=== PATIENT | female | born 1950 | race African-American/Black ===

== ENCOUNTER 2016-02-20 22:11 | Inpatient (IN) | payer OTHER ==
[~2016-02-20] VITALS: Ht 165.1 cm; Wt 71.9 kg
--- NOTE | ~2016-02-20 | EKG ---
[address] [address] ELECTROCARDIOGRAM REPORT Name: RIZWANAMANOJ AGUILAR Room #: 211-P ADM IN M.R.#: [id number] Admission: 02/21/16 Attend Phys: Jony Guerra MD Discharge: Date of : 46 Report #: [id number] THIS REPORT FOR: //name// [facility] ED Test Date: 2016-02-20 Test Time: 22:17:28 Pat Name: MANOJ WAGONER Department: Room: 211 Gender: F Leadite Worker: ASTRID : 1950 Requested By: Abigail Montana Order Number: [id number] MD: Dayday Tobar Measurements Intervals [place] Rate: 83 P: 26 UT: 217 QRS: -35 QRSD: 83 T: 28 QT: 459 QTc: 540 Interpretive Statements Sinus rhythm Borderline prolonged [place] interval Left axis deviation Electronically Signed On 02-21-2016 8:22:48 FINISHING MACHINE TENDER by Dayday Tobar [email or web address] <ELECTRONICALLY SIGNED> By: Dayday Tobar MD 02/21/16 0822 2217 16 Dayday Tobar MD /NICKY
--- NOTE | ~2016-02-20 | EKG ---
[address] [address] ELECTROCARDIOGRAM REPORT Name: RIZWANAMANOJ Room #: 211-P ADM IN M.R.#: [id number] Admission: 02/21/16 Attend Phys: Jony Guerra MD Discharge: Date of : 46 Report #: [id number] THIS REPORT FOR: //name// [facility] ED Test Date: 2016-02-21 Test Time: 01:26:51 Pat Name: MANOJ WAGONER Department: Room: 211 Gender: F Station Engineer: Sandeep STONE RN : 1950 Requested By: Abigail Montana Order Number: [id number] MD: Dayday Tobar Measurements Intervals [place] Rate: 91 P: 13 SC: 219 QRS: -79 QRSD: 87 T: 20 QT: 381 QTc: 469 Interpretive Statements Sinus rhythm Prolonged SC interval Electronically Signed On 02-21-2016 8:23:08 CAD TECHNICIAN by Dayday Tobar [email or web address] <ELECTRONICALLY SIGNED> By: Dayday Tobar MD 02/21/16 0823 0126 0126 MD ENOC Jack
[~2016-02-20 22:11] MED LIST: ACETAMINOPHEN325 M1 PO; B12INJ; BENICAR PO; BENICAR40 MG PO; CATAPRES-TTS 31 EACH TD; CATAPRESS3; CATAPRESS3 TP; CLEOCIN HCL150 MG PO; CLEOCIN HCL300 MG PO; CLONIDINE0.1 PO; COLACE100 MG PO; DOXYCYCLINE 10100 M1; ENDOCET 5-3251 EACH PO; GLUCOPHAGE500 MG PO; HYDROCODON-ACE1 EAC7 PO; HYDROCODONE-AP1 EAC6 PO; K-DUR 20 MEQ T20 MEQ PO; KLOR-CON 1010 MEQ PO; LASIX 20 MG TAB20 MG PO; LISINOPRIL; LOPRESSOR; LOPRESSOR100 MG PO; LOPRESSOR25 PO; LOPRESSOR50 PO; LYRICA 75 MG CA75 MG PO; MACROBID 100 M100 MG PO; MEDROL DOSPAK21 TAB PO; METFORMIN 500500 MG PO; METOPROLOL 100100 M1 PO; NAPROSYN500 MG PO; NEURONTIN 300300 M1 PO; NORCO 5-325 TA1 EACH PO; NORTRIPTYLINE H25 M3 PO; ONDANSETRON HCL4 M2 PO; PEPCID20 MG PO; PERCOCET 5-3251 EACH PO; PROBIOTIC1 EAC1 PO; ROXICODONE5 M2 PO; VITAMIN D1000 UNI1
[2016-02-20 22:20] VITALS: BP 183/111
[2016-02-20 23:31] LABS: HEMATOCRIT 33.9 % (37.0-47.0); HEMOGLOBIN 11.1 gm/dL (12.0-15.0); MCH 28.3 pg (26.0-34.0); MCHC 32.8 % (28.0-37.0); MCV 86.4 fL (80.0-100.0); PLATELET COUNT 311 thou/uL (150-400); RBC 3.92 mil/uL (4.20-5.00); RDW 18.6 % (10.5-14.5); WBC 5.2 thou/uL (4.0-11.0)
[2016-02-20 23:37] LABS: ANION GAP 10 mmol/L (7-16); BUN 6 mg/dL (7-18); CHLORIDE 103 mmol/L (98-107); CO2 28 mmol/L (21-32); CREATININE 0.7 mg/dL (0.6-1.3); GLUCOSE 108 mg/dL (70-99); SODIUM 141 mmol/L (136-145)
[2016-02-20 23:46] LABS: TROPONIN-I < 0.04 ng/mL (<0.04-0.07)
[2016-02-20 23:51] LABS: MANUAL DIFF YES
[2016-02-20] MEDS ORDERED: NEURONTIN 300300 M1 PO (23:53)
[2016-02-20] MEDS ORDERED: PEPCID20 MG PO (23:53)
[2016-02-20] MEDS ORDERED: B12INJ PO (23:53)
[2016-02-20] MEDS ORDERED: COZAAR 25 MG TA25 M1 PO (23:56)
[2016-02-21] VITALS (9 sets, daily range): BP systolic 118–174; BP diastolic 76–102
[2016-02-21 00:16] LABS: ABSOLUTE NEUTROPHILS 2.7 thou/uL (1.4-8.2); TOTAL CELL COUNT 100
[2016-02-21 00:17] LABS: ANISOCYTOSIS 1+
[2016-02-21 08:39] LABS: MAGNESIUM 1.5 mg/dL (1.8-2.4); TROPONIN-I < 0.04 ng/mL (<0.04-0.07)
[2016-02-22 00:01] VITALS: BP 150/101
[2016-02-22 03:56] LABS: HEMATOCRIT 32.5 % (37.0-47.0); HEMOGLOBIN 10.4 gm/dL (12.0-15.0); MCH 28.4 pg (26.0-34.0); MCV 88.8 fL (80.0-100.0); RBC 3.66 mil/uL (4.20-5.00); RDW 18.9 % (10.5-14.5); WBC 6.5 thou/uL (4.0-11.0)
[2016-02-22 04:00] LABS: CALCIUM 8.2 mg/dL (8.5-10.1); CREATININE 0.7 mg/dL (0.6-1.3); POTASSIUM 3.5 mmol/L (3.5-5.1)
[2016-02-22 04:27] VITALS: BP 151/100
[2016-02-22 07:40] VITALS: BP 131/97
[2016-02-22 12:02] VITALS: BP 139/93
[2016-02-22] MEDS ORDERED: COZAAR 50 MG TA50 M1 PO (14:44)
[2016-02-22] MEDS ORDERED: HYDROCODONE-AP1 EAC6 PO (14:44)
[2016-02-22] MEDS ORDERED: LEVAQUIN 750 M750 MG PO (14:44)
[2016-02-22 15:11] VITALS: BP 139/93
== END 2016-02-22 17:47 | disposition home or self-care (01) | DRG 304 ==
LOC: ER 22:11 → EROBS 02-21 02:15 → 2N 02-21 02:15
PROVIDERS: Emergency Medicine; Nurse Practitioner
DX: I16.0 Hypertensive urgency (principal); J18.9 Pneumonia, unspecified organism; D68.9 Coagulation defect, unspecified; I71.4 Abdominal aortic aneurysm, without rupture; I10 Essential (primary) hypertension; E11.9 Type 2 diabetes mellitus without complications; I25.10 Atherosclerotic heart disease of native coronary artery without angina pectoris; D69.6 Thrombocytopenia, unspecified; Z91.19 Patient's noncompliance with other medical treatment and regimen; Z88.0 Allergy status to penicillin; Z88.2 Allergy status to sulfonamides; Z91.040 Latex allergy status; Z91.041 Radiographic dye allergy status; Z82.49 Family history of ischemic heart disease and other diseases of the circulatory system; Z83.3 Family history of diabetes mellitus; Z87.891 Personal history of nicotine dependence; Z86.718 Personal history of other venous thrombosis and embolism; Z86.711 Personal history of pulmonary embolism; Z87.440 Personal history of urinary (tract) infections
CPT/HCPCS: 10081

== ENCOUNTER 2016-10-22 22:47 | Emergency (ER) | payer OTHER ==
[~2016-10-22] VITALS: Ht 165.1 cm; Wt 78.5 kg
--- NOTE | ~2016-10-22 | EKG ---
[place] [address] [facility] [employer] [address] ELECTROCARDIOGRAM REPORT Name: MANOJ WAGONER Room #: [facility]#: [id number] Admission: 10/22/16 Attend Phys: Discharge: 10/23/16 Date of : 46 Report #: [id number] THIS REPORT FOR: //name// [facility] ED Test Date: 2016-10-22 Test Time: 23:13:11 Pat Name: MANOJ WAGONER Department: Room: Gender: F Wool Grader: [facility] : 1950 Requested By: Anamika Rosario Order Number: [id number] MD: Chris Perkins Measurements Intervals [place] Rate: 80 P: 35 NJ: 229 QRS: -41 QRSD: 96 T: 3 QT: 400 QTc: 462 Interpretive Statements Sinus rhythm Left anterior hemiblock Nonspecific T wave abnormality Compared to ECG 02/21/2016 01:26:51 No significant change was found Electronically Signed On 10-23-2016 8:31:16 CDT by Chris Perkins [email or web address] <ELECTRONICALLY SIGNED> By: Chris Perkins MD, [facility] 10/23/16 0831 12 12 Chris Perkins MD, [facility] /EPI
[~2016-10-22 22:47] MED LIST changes: +B12INJ PO; +COZAAR 25 MG TA25 M1 PO; +COZAAR 50 MG TA50 M1 PO; +LEVAQUIN 750 M750 MG PO
[2016-10-22 23:23] LABS: HEMATOCRIT 40.4 % (37.0-47.0); HEMOGLOBIN 13.5 gm/dL (12.0-15.0); MCHC 33.4 g/dL (28.0-37.0); MCV 89.7 fL (80.0-100.0); PLATELET COUNT 255 thou/uL (150-400); RBC 4.51 mil/uL (4.20-5.00); RDW 15.4 % (10.5-14.5); WBC 5.8 thou/uL (4.0-11.0)
[2016-10-22 23:25] LABS: MANUAL DIFF YES
[2016-10-22 23:38] LABS: ANION GAP 10 mmol/L (7-16); BUN 16 mg/dL (7-18); CALCIUM 9.2 mg/dL (8.5-10.1); CHLORIDE 105 mmol/L (98-107); CO2 25 mmol/L (21-32); GLUCOSE 123 mg/dL (74-106); POTASSIUM 3.5 mmol/L (3.5-5.1); SODIUM 140 mmol/L (136-145); TROPONIN-I < 0.04 ng/mL (<0.04-0.07)
[2016-10-22 23:44] LABS: ABSOLUTE NEUTROPHILS 1.5 thou/uL (1.4-8.2); ATYPICAL LYMPHS 8 %; TOTAL CELL COUNT 100
[2016-10-23] MEDS ORDERED: CLONIDINE0.1 PO (00:19)
[2016-10-23] MEDS ORDERED: HYDROCODON-ACE1 EAC7 PO (00:19)
== END 2016-10-23 00:42 | disposition home or self-care (01) ==
LOC: ER 22:47
PROVIDERS: Emergency Medicine
DX: R07.89 Other chest pain (principal); I10 Essential (primary) hypertension; Z86.69 Personal history of other diseases of the nervous system and sense organs; Z86.718 Personal history of other venous thrombosis and embolism; Z86.79 Personal history of other diseases of the circulatory system; Z88.0 Allergy status to penicillin; Z88.2 Allergy status to sulfonamides; Z91.040 Latex allergy status; Z91.041 Radiographic dye allergy status

== ENCOUNTER → 2016-10-29 | Outpatient (CLI) | payer OTHER | LOC: RAD 09:39 | DX: N64.4 Mastodynia (principal) ==

== ENCOUNTER 2016-12-01 00:39 | Emergency (ER) | payer OTHER ==
[~2016-12-01] VITALS: Ht 165.1 cm; Wt 78.9 kg
--- NOTE | ~2016-12-01 | EKG ---
[address] [place] [address] ELECTROCARDIOGRAM REPORT Name: RIZWANAMANOJ M [facility] [id number] Admission: 12/01/16 Attend Phys: Discharge: 12/01/16 Date of : 46 Report #: [id number] THIS REPORT FOR: //name// [facility] ED Test Date: 2016-12-01 Test Time: 02:07:39 Pat Name: MANOJ WAGONER Department: Room: Gender: F Transplant Nurse: RAFAEL : 1950 Requested By: Anamika Rosario Order Number: [id number] MD: Dayday Tobar Measurements Intervals [place] Rate: 70 P: 37 WI: 244 QRS: -41 QRSD: 94 T: 0 QT: 421 QTc: 455 Interpretive Statements Sinus rhythm Prolonged [place] interval Right ventricular hypertrophy Electronically Signed On 12-01-2016 8:49:19 CDT by Dayday Tobar [email or web address] <ELECTRONICALLY SIGNED> By: Dayday Tobar MD 12/01/16 0849 0207 0207 Dayday Tobar MD /NICKY
[2016-12-01] MEDS ORDERED: ASPIR 8181 M1 PO (00:47)
[2016-12-01] MEDS ORDERED: LIPITOR10 MG PO (00:48)
[2016-12-01 02:11] LABS: ABSOLUTE NEUTROPHILS 2.3 thou/uL (1.4-8.2); BASOPHILS 1.1 % (0.0-2.0); EOSINOPHILS 4.6 % (0.0-3.0); HEMATOCRIT 39.7 % (37.0-47.0); LYMPHOCYTES 47.2 % (24.0-44.0); MCH 29.9 pg (26.0-34.0); MCHC 32.9 g/dL (28.0-37.0); MONOCYTES 8.7 % (1.0-8.0); PLATELET COUNT 292 thou/uL (150-400); POLYS 38.4 % (36.0-66.0); RBC 4.36 mil/uL (4.20-5.00); WBC 5.9 thou/uL (4.0-11.0)
[2016-12-01 02:12] LABS: MANUAL DIFF NO
[2016-12-01 02:13] LABS: ANION GAP 7 mmol/L (7-16); BUN 16 mg/dL (7-18); CHLORIDE 104 mmol/L (98-107); CO2 24 mmol/L (21-32); CREATININE 0.8 mg/dL (0.6-1.0); GLUCOSE 126 mg/dL (74-106); POTASSIUM 4.5 mmol/L (3.5-5.1); SODIUM 135 mmol/L (136-145)
[2016-12-01 02:22] LABS: TROPONIN-I < 0.04 ng/mL (<0.04-0.07)
[2016-12-01] MEDS ORDERED: LOPRESSOR50 PO (04:53)
[2016-12-01] MEDS ORDERED: CLONIDINE0.1 PO (04:53)
== END 2016-12-01 05:13 | disposition home or self-care (01) ==
LOC: ER 00:39
PROVIDERS: Emergency Medicine
DX: R07.89 Other chest pain (principal); I10 Essential (primary) hypertension; Z86.69 Personal history of other diseases of the nervous system and sense organs; Z86.718 Personal history of other venous thrombosis and embolism; Z88.2 Allergy status to sulfonamides; Z88.0 Allergy status to penicillin; Z91.041 Radiographic dye allergy status; Z91.040 Latex allergy status

== ENCOUNTER 2017-04-12 22:52 | Inpatient (IN) | payer OTHER ==
[~2017-04-12] VITALS: Ht 165.1 cm; Wt 77.2 kg
--- NOTE | ~2017-04-12 | HC ---
[facility] [place] [address] [place] [address] CONSULTATION Name: MANOJ WAGONER Room #: 208-P [facility] IN ..#: [id number] Admission: 04/13/17 Attend Phys: Honorio Jarrett MD Discharge: 04/18/17 Date of : 46 Report #: [id number] THIS REPORT FOR: //name// CC: Honorio Gibson DATE OF SERVICE: 04/14/2017 REASON FOR CONSULTATION: Chest pain. HISTORY OF PRESENT ILLNESS: The patient is a 66-year-old female who presents with complaints of chest pain. She has a history of a type B aortic dissection, underwent successful stent graft in October [address] Mckay and Dr. Segura. Also, has a history of cerebral aneurysm, poorly controlled hypertension, diabetes, DVT and IVC filter in December 2015. Last echo was in November 2015 showing an EF of 50-55%. When she was admitted with dissection, she was followed by Dr. Perkins. She presents with new onset chest pain. She reports feels like a pressure, was 5/10 in intensity, radiated to the left arm, was associated with some shortness of breath. On admission, her blood pressure was elevated at 190/130. REVIEW OF SYSTEMS: A 12-point review of systems was performed and was negative other than what I mentioned above. PAST MEDICAL HISTORY: As mentioned above. SOCIAL HISTORY: Does not smoke. FAMILY HISTORY: Noncontributory. ALLERGIES: INCLUDE IODINE, LASIX, PENICILLIN AND SULFA. HOME MEDICATIONS: Include vitamins, aspirin, atorvastatin, multivitamin, gabapentin, losartan 50, metoprolol 50 b.i.d., clonidine 0.1 twice a day. PHYSICAL EXAMINATION: VITAL SIGNS: Temperature is 36.6, pulse 69, respirations 13, blood pressures now 137/79, sats are 93-95%. GENERAL: She is in no acute distress. HEENT: Oropharynx clear. NECK: Supple, with no thyromegaly. HEART: Regular rate and rhythm with normal S1, S2. No S3, S4. No elevated JVD. LUNGS: Clear to auscultation bilaterally. ABDOMEN: Soft, nontender, nondistended with no hepatosplenomegaly. [facility] [address] [place] [address] CONSULTATION Name: MANOJ WAGONER Room #: 208-[facility] IN M.R.#: [id number] Admission: 04/13/17 Attend Phys: Honorio Jarrett MD Discharge: 04/18/17 Date of : 46 Report #: [id number] EXTREMITIES: There is no clubbing, cyanosis or edema. Chest x-ray shows normal lung epps. There is evidence of a stent graft in the descending aorta. The CT shows that the upper abdominal aortic aneurysm is similar to 2017. The proximal abdominal aorta and distal thoracic aortic aneurysm is increased since 2016. This was reviewed by Dr. Gibson. LABORATORY DATA: White count 5.5, hemoglobin 12.6, platelets 215. Chemistries: Sodium 139, potassium 3.9, BUN 21, creatinine 1.3. Troponin x 2 is negative. EKG shows no evidence of ischemia. ASSESSMENT: In summary, the patient is a 66-year-old female with a history of aortic aneurysm, status post stent graft presenting with chest pain in the setting of poorly controlled blood pressure. Troponin is normal and her EKG shows no evidence of ischemia. I would recommend that we obtain an echocardiogram tomorrow and that we continue to optimize her blood pressure control. <ELECTRONICALLY SIGNED> By: Dayday Tobar MD 04/26/17 1749 1131 1809 Dayday Tobar MD /nt
--- NOTE | ~2017-04-12 | EKG ---
[address] [place] [address] ELECTROCARDIOGRAM REPORT Name: MANOJ WAGONER Room #: 241- ADM IN M.R.#: [id number] Admission: 04/13/17 Attend Phys: Honorio Jarrett MD Discharge: Date of : 46 Report #: [id number] THIS REPORT FOR: //name// [facility] Test Date: 2017-04-15 Test Time: 10:19:23 Pat Name: MANOJ WAGONER Department: Room: 241 P Gender: F Bartender Manager: KIMBERLY : 1950 Requested By: Jose Amado Order Number: [id number] MD: Chris Perkins Measurements Intervals [place] Rate: 68 P: -18 LA: 228 QRS: -37 QRSD: 99 T: QT: 402 QTc: 428 Interpretive Statements Sinus rhythm Prolonged [place] interval Left axis deviation Early R-wave progression T abnrm, anterolateral leads Compared to ECG 04/12/2017 22:58:33 No significant change was found Electronically Signed On 04-16-2017 7:47:18 TRAVELERS' AID WORKER by Chris Perkins [email or web address] <ELECTRONICALLY SIGNED> By: Chris Perkins MD, [facility] 04/16/17 0747 1019 1019 Chris Perkins MD, [facility] /EPI
--- NOTE | ~2017-04-12 | EKG ---
[address] [address] ELECTROCARDIOGRAM REPORT Name: MANOJ WAGONER Room #: 251-P [facility] IN M.R.#: [id number] Admission: 04/13/17 Attend Phys: Honorio Jarrett MD Discharge: Date of : 46 Report #: [id number] THIS REPORT FOR: //name// [facility] ED Test Date: 2017-04-12 Test Time: 22:58:33 Pat Name: MANOJ WAGONER Department: Room: 251 Gender: F Nurse General Duty: MABEL : 1950 Requested By: Jeremiah Hunter Order Number: [id number] MD: Dayday Tobar Measurements Intervals [place] Rate: 69 P: 43 OR: 248 QRS: -35 QRSD: 83 T: 45 QT: 592 QTc: 635 Interpretive Statements Sinus rhythm Prolonged [place] interval Abnormal R-wave progression, early transition Inferior infarct, old Compared to ECG 12/01/2016 02:07:39 Myocardial infarct finding now present Right ventricular hypertrophy no longer present Electronically Signed On 04-13-2017 13:27:25 CUSHION COVER INSPECTOR by Dayday Tobar [email or web address] <ELECTRONICALLY SIGNED> By: Dayday Tobar MD 04/13/17 1327 2258 2258 Dayday Tobar MD /EPI
[~2017-04-12 22:52] MED LIST changes: +ASPIR 8181 M1 PO; +LIPITOR10 MG PO
[2017-04-12 22:53] VITALS: BP 153/77
[2017-04-13] VITALS (71 sets, daily range): BP systolic 96–170; BP diastolic 56–105
[2017-04-13 00:14] LABS: ABSOLUTE NEUTROPHILS 1.7 thou/uL (1.4-8.2); BASOPHILS 1.5 % (0.0-2.0); EOSINOPHILS 5.1 % (0.0-3.0); HEMATOCRIT 37.2 % (37.0-47.0); HEMOGLOBIN 12.6 gm/dL (12.0-15.0); LYMPHOCYTES 51.3 % (24.0-44.0); MCH 30.6 pg (26.0-34.0); MCHC 33.9 g/dL (28.0-37.0); MCV 90.4 fL (80.0-100.0); MONOCYTES 11.7 % (1.0-8.0); PLATELET COUNT 215 thou/uL (150-400); POLYS 30.4 % (36.0-66.0); RBC 4.11 mil/uL (4.20-5.00); RDW 15.3 % (10.5-14.5); WBC 5.5 thou/uL (4.0-11.0)
[2017-04-13] MEDS ORDERED: CENTRUM SILVER1 EAC2 PO (00:22)
[2017-04-13 00:25] LABS: ANION GAP 7 mmol/L (7-16); BUN 14 mg/dL (7-18); CALCIUM 8.5 mg/dL (8.5-10.1); CHLORIDE 108 mmol/L (98-107); CO2 27 mmol/L (21-32); CREATININE 0.9 mg/dL (0.6-1.0); GLUCOSE 113 mg/dL (74-106); POTASSIUM 3.6 mmol/L (3.5-5.1); SODIUM 142 mmol/L (136-145); TROPONIN-I < 0.04 ng/mL (<0.06)
[2017-04-14] VITALS (86 sets, daily range): BP systolic 64–204; BP diastolic 56–105
[2017-04-14 06:03] LABS: ALBUMIN 2.8 g/dL (3.4-5.0); ANION GAP 8 mmol/L (7-16); BUN 21 mg/dL (7-18); CALCIUM 8.3 mg/dL (8.5-10.1); CHLORIDE 105 mmol/L (98-107); CO2 26 mmol/L (21-32); CREATININE 1.3 mg/dL (0.6-1.0); GLUCOSE 135 mg/dL (74-106); PHOSPHORUS 3.2 mg/dL (2.5-4.9); POTASSIUM 3.9 mmol/L (3.5-5.1); SODIUM 139 mmol/L (136-145); TROPONIN-I < 0.04 ng/mL (<0.06)
[2017-04-15] VITALS (75 sets, daily range): BP systolic 86–172; BP diastolic 54–114
[2017-04-16 05:03] LABS: CALCIUM 8.8 mg/dL (8.5-10.1); TOTAL BILIRUBIN 0.4 mg/dL (<0.1-1.0); TOTAL PROTEIN 7.3 g/dL (6.4-8.2)
[2017-04-16 05:26] LABS: HEMOGLOBIN 12.3 gm/dL (12.0-15.0); MCHC 32.4 g/dL (28.0-37.0); MCV 92.5 fL (80.0-100.0); RBC 4.1 mil/uL (4.20-5.00); RDW 15.5 % (10.5-14.5); WBC 7.1 thou/uL (4.0-11.0)
[2017-04-16 08:00] VITALS: BP 151/80
[2017-04-16 09:00] VITALS: BP 110/61
[2017-04-16 12:21] VITALS: BP 113/67
[2017-04-16 17:02] VITALS: BP 121/64
[2017-04-16 19:50] VITALS: BP 116/61
[2017-04-17 00:15] VITALS: BP 134/71
[2017-04-17 04:45] VITALS: BP 143/79
[2017-04-17 08:26] VITALS: BP 131/80
[2017-04-17 12:46] VITALS: BP 116/67
[2017-04-17 17:12] VITALS: BP 142/77
[2017-04-17 20:10] VITALS: BP 140/66
[2017-04-18] VITALS (7 sets, daily range): BP systolic 130–160; BP diastolic 72–100
[2017-04-18 03:28] LABS: ABSOLUTE NEUTROPHILS 3.1 thou/uL (1.4-8.2); BASOPHILS 0.7 % (0.0-2.0); HEMATOCRIT 35.4 % (37.0-47.0); HEMOGLOBIN 11.7 gm/dL (12.0-15.0); LYMPHOCYTES 41.4 % (24.0-44.0); MCH 30.6 pg (26.0-34.0); MCHC 33.2 g/dL (28.0-37.0); MCV 92.3 fL (80.0-100.0); MONOCYTES 9.9 % (1.0-8.0); PLATELET COUNT 217 thou/uL (150-400); RBC 3.83 mil/uL (4.20-5.00); RDW 15.5 % (10.5-14.5); WBC 7.3 thou/uL (4.0-11.0)
[2017-04-18 03:29] LABS: CALCIUM 8.5 mg/dL (8.5-10.1); CREATININE 1.2 mg/dL (0.6-1.0)
[2017-04-18] MEDS ORDERED: COZAAR 50 MG TA50 M1 PO (17:19)
[2017-04-18] MEDS ORDERED: PEPCID20 MG PO (17:19)
[2017-04-18] MEDS ORDERED: NEURONTIN 300300 M1 PO (17:19)
== END 2017-04-18 19:06 | disposition home or self-care (01) | DRG 305 ==
LOC: ER 22:52 → ICU 04-13 04:31 → EROBS 04-13 04:31 → ICU 04-13 06:10 → 2N 04-16 10:24 → ENTRNSPT 04-18 18:30 → 2N 04-18 19:06
PROVIDERS: Emergency Medicine; Hospitalist
DX: I16.1 Hypertensive emergency (principal); N17.9 Acute kidney failure, unspecified; I71.2 Thoracic aortic aneurysm, without rupture; I10 Essential (primary) hypertension; E11.9 Type 2 diabetes mellitus without complications; Z79.899 Other long term (current) drug therapy; Z88.0 Allergy status to penicillin; Z88.2 Allergy status to sulfonamides; Z91.041 Radiographic dye allergy status; Z91.040 Latex allergy status; Z82.49 Family history of ischemic heart disease and other diseases of the circulatory system; Z83.3 Family history of diabetes mellitus; Z87.891 Personal history of nicotine dependence; Z86.711 Personal history of pulmonary embolism; Z23 Encounter for immunization
CPT/HCPCS: 10078; 10081

== ENCOUNTER 2017-04-23 15:28 | Inpatient (IN) | payer OTHER ==
[~2017-04-23] VITALS: Ht 165.1 cm; Wt 75.0 kg
--- NOTE | ~2017-04-23 | EKG ---
[place] [address] [place] [address] ELECTROCARDIOGRAM REPORT Name: MANOJ WAGONER Room #: [facility]#: [id number] Admission: 04/23/17 Attend Phys: Discharge: Date of : 46 Report #: [id number] THIS REPORT FOR: //name// [facility] ED Test Date: 2017-04-23 Test Time: 16:02:31 Pat Name: MANOJ WAGONER Department: Room: Gender: F Collar Fuser: MARY : 1950 Requested By: Bandar Haines Order Number: [id number] MD: Chris Perkins Measurements Intervals [place] Rate: 67 P: -5 CT: 203 QRS: -63 QRSD: 82 T: 28 QT: 536 QTc: 566 Interpretive Statements Sinus rhythm Possible Inferior infarct, old Prolonged QT interval Nonspecific T wave abnormality Compared to ECG 04/15/2017 10:19:23 No significant change was found Electronically Signed On 04-23-2017 17:08:39 CDT by Chris Perkins [email or web address] <ELECTRONICALLY SIGNED> By: Chris Perkins MD, [facility] 04/23/17 1708 1602 01 Chris Perkins MD, [facility] /EPI
[~2017-04-23 15:28] MED LIST changes: +CENTRUM SILVER1 EAC2 PO
[2017-04-23 15:29] VITALS: BP 147/84
[2017-04-23 15:53] LABS: ABSOLUTE NEUTROPHILS 3.9 thou/uL (1.4-8.2); BASOPHILS 1.1 % (0.0-2.0); EOSINOPHILS 2.9 % (0.0-3.0); HEMATOCRIT 38.2 % (37.0-47.0); HEMOGLOBIN 12.5 gm/dL (12.0-15.0); LYMPHOCYTES 36.6 % (24.0-44.0); MCH 30.1 pg (26.0-34.0); MCHC 32.8 g/dL (28.0-37.0); MCV 91.8 fL (80.0-100.0); MONOCYTES 8.7 % (1.0-8.0); PLATELET COUNT 239 thou/uL (150-400); POLYS 50.7 % (36.0-66.0); RBC 4.16 mil/uL (4.20-5.00); RDW 14.9 % (10.5-14.5); WBC 7.8 thou/uL (4.0-11.0)
[2017-04-23 16:02] LABS: ANION GAP 9 mmol/L (7-16); BUN 14 mg/dL (7-18); CHLORIDE 107 mmol/L (98-107); CO2 26 mmol/L (21-32); CREATININE 0.9 mg/dL (0.6-1.0); GLUCOSE 101 mg/dL (74-106); SODIUM 142 mmol/L (136-145)
[2017-04-23 16:10] LABS: TROPONIN-I < 0.04 ng/mL (<0.06)
[2017-04-23 21:11] VITALS: BP 161/89
[2017-04-24 00:10] VITALS: BP 123/74
[2017-04-24 02:35] LABS: CALCIUM 8.2 mg/dL (8.5-10.1); POTASSIUM 3.7 mmol/L (3.5-5.1)
[2017-04-24 04:25] VITALS: BP 107/68
[2017-04-24 07:35] VITALS: BP 148/79
[2017-04-24] MEDS ORDERED: CELEBREX 200 M200 M1 PO (09:28)
[2017-04-24] MEDS ORDERED: VOLTAREN GEL 1100 G1 TOP (12:07)
[2017-04-24 15:31] VITALS: BP 157/89
[2017-04-24 16:59] VITALS: BP 157/89
[2017-04-26 10:36] VITALS: BP 157/89
== END 2017-04-24 17:57 | disposition home or self-care (01) | DRG 206 ==
LOC: ER 15:28 → EROBS 18:32 → 4E 19:53 → ENTRNSPT 04-24 17:31 → 4E 04-24 17:57
PROVIDERS: Hospitalist; Nurse Practitioner
DX: M94.0 Chondrocostal junction syndrome [Tietze] (principal); I10 Essential (primary) hypertension; E11.9 Type 2 diabetes mellitus without complications; E78.5 Hyperlipidemia, unspecified; Z86.718 Personal history of other venous thrombosis and embolism; Z79.899 Other long term (current) drug therapy; Z88.0 Allergy status to penicillin; Z88.2 Allergy status to sulfonamides; Z91.041 Radiographic dye allergy status; Z91.040 Latex allergy status; Z82.49 Family history of ischemic heart disease and other diseases of the circulatory system; Z83.3 Family history of diabetes mellitus; Z87.891 Personal history of nicotine dependence
CPT/HCPCS: 10183

== ENCOUNTER 2018-02-14 09:22 | Emergency (ER) | payer OTHER ==
[~2018-02-14] VITALS: Ht 165.1 cm; Wt 86.2 kg
[~2018-02-14 09:22] MED LIST changes: +CELEBREX 200 M200 M1 PO; +VOLTAREN GEL 1100 G1 TOP
[2018-02-14] MEDS ORDERED: NEURONTIN 300300 M1 PO (09:29)
[2018-02-14] MEDS ORDERED: LIPITOR 20 MG T20 M1 PO (09:29)
[2018-02-14 09:48] LABS: HEMATOCRIT 38.4 % (37.0-47.0); HEMOGLOBIN 12.8 gm/dL (12.0-15.0); MCH 30.7 pg (26.0-34.0); MCHC 33.4 g/dL (28.0-37.0); PLATELET COUNT 204 thou/uL (150-400); RBC 4.18 mil/uL (4.20-5.00); RDW 14.4 % (10.5-14.5)
[2018-02-14 09:54] LABS: CALCIUM 8.6 mg/dL (8.5-10.1); CREATININE 0.9 mg/dL (0.6-1.0); POTASSIUM 3.4 mmol/L (3.5-5.1)
[2018-02-14 10:56] LABS: ABSOLUTE NEUTROPHILS 1.8 thou/uL (1.4-8.2); ANISOCYTOSIS SLIGHT; ATYPICAL LYMPHS 1 %
[2018-02-14 14:12] VITALS: BP 175/84
--- NOTE | 2018-02-16 21:45 | EKG ---
[place] [address] [employer] [facility] [place] [address] ELECTROCARDIOGRAM REPORT Name: IRZWANAMANOJ AGUILAR [id number] Admission: 02/14/18 Attend Phys: Discharge: 02/14/18 Date of : 46 Report #: [id number] THIS REPORT FOR: //name// [facility] ED Test Date: 2018-02-14 Test Time: 09:56:25 Pat Name: MANOJ WAGONER Department: Room: Gender: F Blacking Machine Operator: : 1950 Requested By: Elle Castillo Order Number: [id number] MD: Dayday Tobar Measurements Intervals [place] Rate: 67 P: 9 IN: 235 QRS: -41 QRSD: 94 T: -34 QT: 424 QTc: 448 Interpretive Statements Sinus rhythm Prolonged [place] interval Left anterior fascicular block Consider RVH or posterior infarct Nonspecific T abnormalities, diffuse leads Compared to ECG 10/10/2017 10:41:24 First degree AV block now present Left anterior fascicular block now present Possible ischemia no longer present Myocardial infarct finding still present T-wave abnormality still present Electronically Signed On 02-16-2018 21:45:30 TIN FLIPPER by Dayday Tobar [email or web address] <ELECTRONICALLY SIGNED> By: Dayday Tobar MD 02/16/18 2145 0956 Dayday Tobar MD /EPI
== END 2018-02-14 14:14 | disposition home or self-care (01) ==
LOC: ER 09:22
PROVIDERS: Physician Assistant
DX: R04.0 Epistaxis (principal); R07.89 Other chest pain; I10 Essential (primary) hypertension; E11.9 Type 2 diabetes mellitus without complications; Z86.79 Personal history of other diseases of the circulatory system; Z91.041 Radiographic dye allergy status; Z91.040 Latex allergy status; Z88.2 Allergy status to sulfonamides; Z88.0 Allergy status to penicillin

== ENCOUNTER 2018-04-25 09:48 | Emergency (ER) | payer OTHER ==
[~2018-04-25] VITALS: Ht 165.1 cm; Wt 84.4 kg
[~2018-04-25 09:48] MED LIST changes: +LIPITOR 20 MG T20 M1 PO
[2018-04-25 10:53] LABS: ABSOLUTE NEUTROPHILS 1.8 thou/uL (1.4-8.2); BASOPHILS 1.5 % (0.0-2.0); EOSINOPHILS 4.9 % (0.0-3.0); HEMATOCRIT 38.6 % (37.0-47.0); HEMOGLOBIN 12.8 gm/dL (12.0-15.0); LYMPHOCYTES 45.1 % (24.0-44.0); MCH 30.7 pg (26.0-34.0); MCHC 33.2 g/dL (28.0-37.0); MCV 92.6 fL (80.0-100.0); MONOCYTES 11.2 % (1.0-8.0); PLATELET COUNT 206 thou/uL (150-400); POLYS 37.3 % (36.0-66.0); RBC 4.17 mil/uL (4.20-5.00); WBC 4.9 thou/uL (4.0-11.0)
[2018-04-25 10:59] LABS: ANION GAP 7 mmol/L (7-16); BUN 11 mg/dL (7-18); CALCIUM 8.7 mg/dL (8.5-10.1); CHLORIDE 109 mmol/L (98-107); CO2 26 mmol/L (21-32); CREATININE 0.8 mg/dL (0.6-1.0); GLUCOSE 123 mg/dL (74-106); POTASSIUM 3.9 mmol/L (3.5-5.1); SODIUM 142 mmol/L (136-145)
[2018-04-25 11:06] LABS: APTT 26.3 Seconds (24.5-32.8); PROTIME 10.6 Seconds (9.3-11.4)
[2018-04-25 11:10] LABS: ALBUMIN 3.3 g/dL (3.4-5.0); MAGNESIUM 1.9 mg/dL (1.8-2.4); SGOT 18 U/L (15-37); SGPT 20 U/L (30-65); TOTAL BILIRUBIN 0.2 mg/dL (<0.1-1.0); TOTAL PROTEIN 7.7 g/dL (6.4-8.2); TROPONIN-I <0.06 ng/mL (<0.06)
[2018-04-25] MEDS ORDERED: NORCO 5-325 TA1 EACH PO (12:25)
[2018-04-25] MEDS ORDERED: VITAMIN D3400 UNIT PO (12:48)
[2018-04-25 12:49] VITALS: BP 146/87
--- NOTE | 2018-04-27 13:22 | EKG ---
[place] [address] [facility] [place] [address] ELECTROCARDIOGRAM REPORT Name: MANOJ WAGONER Room #: [facility]#: [id number] ������������������ Admission: 04/25/18 ������������������ Attend Phys: Discharge: 04/25/18 ������������������ Date of : 46 Report #: [id number] ����������������������������������������������������������������� [id number] THIS REPORT FOR: //name// [facility] ED Test Date: 2018-04-25 Test Time: 11:20:18 Pat Name: MANOJ WAGONER Department: Room: Gender: F Real Estate Professor: ALEXI : 1950 Requested By: Kristofer Tolentino Order Number: [id number] MD: Chris Perkins Measurements Intervals [place] Rate: 64 P: -16 SC: 209 QRS: -64 QRSD: 90 T: -62 QT: 428 QTc: 442 Interpretive Statements Sinus rhythm Early R-wave progression Inferior infarct, old Abnrm T, consider ischemia, anterolateral lds Compared to ECG 02/14/2018 09:56:25 No significant change was found Electronically Signed On 04-27-2018 13:21:51 CDT by Chris Perkins [email or web address] ��������������������������������������������� <ELECTRONICALLY SIGNED> ���������������������������������������� By: Chris Perkins MD, [facility] ��������������������������������������������� 04/27/18 1321 1120 1120 Chris Perkins MD, [facility] /EPI
== END 2018-04-25 12:54 | disposition home or self-care (01) ==
LOC: ER 09:48
PROVIDERS: Emergency Medicine
DX: I10 Essential (primary) hypertension (principal); I71.2 Thoracic aortic aneurysm, without rupture; I67.1 Cerebral aneurysm, nonruptured; E11.9 Type 2 diabetes mellitus without complications; Z88.0 Allergy status to penicillin; Z88.2 Allergy status to sulfonamides; Z91.041 Radiographic dye allergy status; Z91.040 Latex allergy status

== ENCOUNTER 2018-07-09 12:53 | Emergency (ER) | payer OTHER ==
[~2018-07-09] VITALS: Ht 162.6 cm; Wt 72.6 kg
[~2018-07-09 12:53] MED LIST changes: +VITAMIN D3400 UNIT PO
[2018-07-09 15:20] LABS: ANION GAP 8 mmol/L (7-16); BUN 10 mg/dL (7-18); CALCIUM 9.3 mg/dL (8.5-10.1); CHLORIDE 106 mmol/L (98-107); CO2 27 mmol/L (21-32); CREATININE 0.9 mg/dL (0.6-1.0); GLUCOSE 102 mg/dL (74-106); POTASSIUM 4.1 mmol/L (3.5-5.1); SODIUM 141 mmol/L (136-145)
[2018-07-09 15:28] LABS: TROPONIN-I <0.06 ng/mL (<0.06)
[2018-07-09 15:49] LABS: ABSOLUTE NEUTROPHILS 1.9 thou/uL (1.4-8.2); BASOPHILS 1.5 % (0.0-2.0); EOSINOPHILS 4.5 % (0.0-3.0); HEMATOCRIT 41.3 % (37.0-47.0); HEMOGLOBIN 13.6 gm/dL (12.0-15.0); LYMPHOCYTES 48.3 % (24.0-44.0); MCH 30.9 pg (26.0-34.0); MCHC 32.8 g/dL (28.0-37.0); MCV 94.2 fL (80.0-100.0); MONOCYTES 10.4 % (1.0-8.0); PLATELET COUNT 237 thou/uL (150-400); POLYS 35.3 % (36.0-66.0); RBC 4.39 mil/uL (4.20-5.00); RDW 15.6 % (10.5-14.5); WBC 5.3 thou/uL (4.0-11.0)
--- NOTE | 2018-07-09 16:25 | EKG ---
[address] [address] ELECTROCARDIOGRAM REPORT Name: MANOJ WAGONER Room #: [facility]#: [id number] ������������������ Admission: 07/09/18 ������������������ Attend Phys: Discharge: ������������������ Date of : 46 Report #: [id number] ����������������������������������������������������������������� [id number] THIS REPORT FOR: //name// [facility] ED Test Date: 2018-07-09 Test Time: 15:36:42 Pat Name: MANOJ WAGONER Department: Room: Gender: F Sliver Lap Machine Tender: cw : 1950 Requested By: Jeremiah Hunter Order Number: [id number] MD: Dayday Tobar Measurements Intervals [place] Rate: 64 P: -29 RI: 214 QRS: -51 QRSD: 102 T: -39 QT: 410 QTc: 423 Interpretive Statements Sinus rhythm Borderline prolonged RI interval Right ventricular hypertrophy Inferior infarct, old Compared to ECG 04/25/2018 11:20:18 Right ventricular hypertrophy now present Possible ischemia no longer present Myocardial infarct finding still present Electronically Signed On 07-09-2018 16:25:42 CDT by Dayday Tobar [email or web address] ��������������������������������������������� <ELECTRONICALLY SIGNED> ���������������������������������������� By: Dayday Tobar MD ��������������������������������������������� 07/09/18 1390 1536 1536 Dayday Tobar MD /NICKY
[2018-07-09 16:55] VITALS: BP 159/91
== END 2018-07-09 16:55 | disposition home or self-care (01) ==
LOC: ER 12:53
PROVIDERS: Emergency Medicine
DX: I10 Essential (primary) hypertension (principal); R51 Headache; E11.9 Type 2 diabetes mellitus without complications; Z86.79 Personal history of other diseases of the circulatory system; Z88.0 Allergy status to penicillin; Z88.2 Allergy status to sulfonamides; Z91.040 Latex allergy status; Z91.041 Radiographic dye allergy status

== ENCOUNTER 2018-08-22 23:35 | Emergency (ER) | payer OTHER ==
[~2018-08-22] VITALS: Ht 165.1 cm; Wt 84.4 kg
[2018-08-22] MEDS ORDERED: LOPRESSOR50 PO (23:55)
[2018-08-22] MEDS ORDERED: LASIX 20 MG TAB20 MG PO (23:56)
[2018-08-23 00:38] LABS: ABSOLUTE NEUTROPHILS 1.9 thou/uL (1.4-8.2); BASOPHILS 0.3 % (0.0-2.0); EOSINOPHILS 4.6 % (0.0-3.0); HEMATOCRIT 39.8 % (37.0-47.0); HEMOGLOBIN 13.1 gm/dL (12.0-15.0); LYMPHOCYTES 48.8 % (24.0-44.0); MCH 31.1 pg (26.0-34.0); MCHC 32.9 g/dL (28.0-37.0); MCV 94.5 fL (80.0-100.0); MONOCYTES 11.2 % (1.0-8.0); PLATELET COUNT 240 thou/uL (150-400); POLYS 35.1 % (36.0-66.0); RBC 4.21 mil/uL (4.20-5.00); WBC 5.3 thou/uL (4.0-11.0)
[2018-08-23 00:42] LABS: ANION GAP 9 mmol/L (7-16); BUN 16 mg/dL (7-18); CALCIUM 9.2 mg/dL (8.5-10.1); CHLORIDE 105 mmol/L (98-107); CO2 29 mmol/L (21-32); GLUCOSE 124 mg/dL (74-106); POTASSIUM 3.5 mmol/L (3.5-5.1); SODIUM 143 mmol/L (136-145)
[2018-08-23 00:51] LABS: TROPONIN-I <0.06 ng/mL (<0.06)
[2018-08-23 01:50] VITALS: BP 160/109
--- NOTE | 2018-08-23 11:16 | EKG ---
[place] [address] [employer] [place] [address] ELECTROCARDIOGRAM REPORT Name: ROSIE WAGONERLEY Lucien [facility] [id number] ������������������ Admission: 08/22/18 ������������������ Attend Phys: Discharge: 08/23/18 ������������������ Date of : 46 Report #: [id number] ����������������������������������������������������������������� [id number] THIS REPORT FOR: //name// [facility] ED Test Date: 2018-08-23 Test Time: 00:47:01 Pat Name: MANOJ WAGONER Department: Room: Gender: F Ceo Ziff Davis: amelie : 1950 Requested By: Garrett Lovett Order Number: [id number] MD: Chris Perkins Measurements Intervals [place] Rate: 67 P: -14 VA: 226 QRS: -48 QRSD: 99 T: -42 QT: 408 QTc: 431 Interpretive Statements Sinus rhythm Prolonged [place] interval Left anterior hemiblock Early R-wave progression Inferior and lateral T wave abnormality Compared to ECG 07/09/2018 15:36:42 No significant changes Electronically Signed On 08-23-2018 11:16:01 CDT by Chris Perkins [email or web address] ��������������������������������������������� <ELECTRONICALLY SIGNED> ���������������������������������������� By: Chris Perkins MD, [facility] ��������������������������������������������� 08/23/18 1116 0047 0047 Chris Perkins MD, [facility] /EPI
== END 2018-08-23 01:56 | disposition home or self-care (01) ==
LOC: ER 23:35
PROVIDERS: Emergency Medicine
DX: I10 Essential (primary) hypertension (principal); R07.89 Other chest pain; E11.9 Type 2 diabetes mellitus without complications; Z91.041 Radiographic dye allergy status; Z91.040 Latex allergy status; Z88.0 Allergy status to penicillin; Z88.2 Allergy status to sulfonamides

== ENCOUNTER 2018-10-10 16:49 | Emergency (ER) | payer OTHER ==
[~2018-10-10] VITALS: Ht 165.1 cm; Wt 84.4 kg
[2018-10-10 18:23] LABS: ABSOLUTE NEUTROPHILS 2.4 thou/uL (1.4-8.2); BASOPHILS 1.4 % (0.0-2.0); EOSINOPHILS 3.4 % (0.0-3.0); HEMATOCRIT 39.3 % (37.0-47.0); HEMOGLOBIN 13.3 gm/dL (12.0-15.0); LYMPHOCYTES 41.7 % (24.0-44.0); MCH 31.8 pg (26.0-34.0); MCHC 33.8 g/dL (28.0-37.0); MCV 93.8 fL (80.0-100.0); MONOCYTES 11.5 % (1.0-8.0); PLATELET COUNT 249 thou/uL (150-400); RBC 4.19 mil/uL (4.20-5.00); RDW 14.8 % (10.5-14.5); WBC 5.7 thou/uL (4.0-11.0)
[2018-10-10 18:32] LABS: ANION GAP 10 mmol/L (7-16); BUN 21 mg/dL (7-18); CALCIUM 9.4 mg/dL (8.5-10.1); CHLORIDE 104 mmol/L (98-107); CO2 28 mmol/L (21-32); CREATININE 1.5 mg/dL (0.6-1.0); GLUCOSE 116 mg/dL (74-106); POTASSIUM 3.2 mmol/L (3.5-5.1); SODIUM 142 mmol/L (136-145)
[2018-10-10 18:39] LABS: LIPASE 125 U/L (73-393); TROPONIN-I <0.06 ng/mL (<0.06)
[2018-10-10 21:03] LABS: URINE BILIRUBIN 1+ (Negative); URINE BLOOD 2+ (Negative); URINE CLARITY SL CLOUDY; URINE COLOR YELLOW; URINE GLUCOSE-RANDOM* NEGATIVE (Negative); URINE KETONES TRACE (Negative); URINE NITRITE-REFLEX NEGATIVE (Negative); URINE PROTEIN (DIPSTICK) TRACE (Negative); URINE SPECIFIC GRAVITY 1.025 (1.005-1.035); URINE UROBILINOGEN 0.2 E.U./dl (0.2-1.0)
[2018-10-10 21:09] LABS: ICTOTEST (BILI CONFIRMATORY) Positive (Negative); URINE LEUKOCYTES-REFLEX 2+ (Negative)
[2018-10-10 21:25] LABS: BACTERIA-REFLEX >30 Many /HPF (None Seen); HYALINE CASTS 0-3 Few /LPF (None Seen); MUCUS 0-3 Light strn/LPF (None Seen); SQUAMOUS 0-3 Few /LPF (0-3); TRANSITIONAL EPITHEL CELL 0-3 Few /LPF (None Seen); URIC ACID CRYSTALS 0-3 Few /LPF (None Seen)
[2018-10-10] MEDS ORDERED: MACROBID 100 M100 M2 PO (21:50)
[2018-10-10 22:22] VITALS: BP 153/96
[2018-10-10] MEDS ORDERED: MOBIC15 MG PO (22:42)
--- NOTE | 2018-10-14 07:45 | EKG ---
[place] [address] [place] [address] ELECTROCARDIOGRAM REPORT Name: MANOJ WAGONER Room #: [facility]#: [id number] Admission: 10/10/18 Attend Phys: Discharge: 10/10/18 Date of : 46 Report #: [id number] THIS REPORT FOR: //name// [facility] ED Test Date: 2018-10-10 Test Time: 16:58:58 Pat Name: MANOJ WAGONER Department: Room: Gender: F Quality Control Representative: SUBHASH : 1950 Requested By: Bandar Haines Order Number: [id number] MD: Chris Perkins Measurements Intervals [place] Rate: 77 P: -11 NJ: 242 QRS: -61 QRSD: 90 T: QT: 403 QTc: 457 Interpretive Statements Sinus rhythm Prolonged [place] interval Inferior infarct, old Abnrm T, consider ischemia, anterolateral lds Compared to ECG 08/23/2018 00:47:01 no significant change was found Electronically Signed On 10-14-2018 7:45:25 CDT by Chris Perkins [email or web address] <ELECTRONICALLY SIGNED> By: Chris Perkins MD, [facility] 10/14/18 0745 1658 165 Chris Perkins MD, [facility] /EPI
== END 2018-10-10 22:23 | disposition home or self-care (01) ==
LOC: ER 16:49
PROVIDERS: Nurse Practitioner
DX: N39.0 Urinary tract infection, site not specified (principal); E86.0 Dehydration; M25.552 Pain in left hip; I10 Essential (primary) hypertension; E11.9 Type 2 diabetes mellitus without complications; Z86.718 Personal history of other venous thrombosis and embolism; Z91.041 Radiographic dye allergy status; Z88.0 Allergy status to penicillin; Z88.2 Allergy status to sulfonamides; Z91.040 Latex allergy status

== ENCOUNTER 2018-12-23 13:44 | Emergency (ER) | payer OTHER ==
[~2018-12-23] VITALS: Ht 165.1 cm; Wt 79.8 kg
[~2018-12-23 13:44] MED LIST changes: +MACROBID 100 M100 M2 PO; +MOBIC15 MG PO
[2018-12-23 14:30] LABS: ABSOLUTE NEUTROPHILS 2.2 thou/uL (1.4-8.2); BASOPHILS 1.5 % (0.0-2.0); EOSINOPHILS 3.6 % (0.0-3.0); HEMATOCRIT 39.2 % (37.0-47.0); HEMOGLOBIN 12.8 gm/dL (12.0-15.0); LYMPHOCYTES 46.2 % (24.0-44.0); MCH 31.6 pg (26.0-34.0); MCHC 32.6 g/dL (28.0-37.0); MCV 96.9 fL (80.0-100.0); MONOCYTES 9.4 % (1.0-8.0); PLATELET COUNT 241 thou/uL (150-400); POLYS 39.3 % (36.0-66.0); RBC 4.05 mil/uL (4.20-5.00); RDW 15.2 % (10.5-14.5); WBC 5.7 thou/uL (4.0-11.0)
[2018-12-23 14:57] LABS: ANION GAP 11 mmol/L (7-16); BUN 18 mg/dL (7-18); CALCIUM 9.3 mg/dL (8.5-10.1); CHLORIDE 104 mmol/L (98-107); CO2 24 mmol/L (21-32); CREATININE 0.8 mg/dL (0.6-1.0); GLUCOSE 111 mg/dL (74-106); POTASSIUM 4.2 mmol/L (3.5-5.1); SODIUM 139 mmol/L (136-145)
[2018-12-23 15:08] LABS: ALBUMIN 3.1 g/dL (3.4-5.0); LIPASE 116 U/L (73-393); MAGNESIUM 1.7 mg/dL (1.8-2.4); SGOT 34 U/L (15-37); SGPT 18 U/L (30-65); TOTAL BILIRUBIN 0.4 mg/dL (<0.1-1.0); TOTAL PROTEIN 7.8 g/dL (6.4-8.2); TROPONIN-I <0.06 ng/mL (<0.06)
--- NOTE | 2018-12-23 19:28 | EKG ---
[place] [address] [employer] [facility] [place] [address] ELECTROCARDIOGRAM REPORT Name: MANOJ WAGONER Room #: [facility]#: [id number] Admission: 12/23/18 Attend Phys: Discharge: Date of : 46 Report #: [id number] THIS REPORT FOR: //name// [facility] ED Test Date: 2018-12-23 Test Time: 13:51:47 Pat Name: MANOJ WAGONER Department: Room: Gender: F Armed Custom Protection Officer: [facility] : 1950 Requested By: Lesley Flanagan Order Number: [id number] MD: Chris Perkins Measurements Intervals [place] Rate: 65 P: 35 IN: 235 QRS: -55 QRSD: 95 T: -49 QT: 521 QTc: 542 Interpretive Statements Sinus rhythm Prolonged IN interval Left axis deviation Early R-wave progression Borderline T abnormalities, diffuse leads Compared to ECG 10/10/2018 16:58:58 T wave abnormality is less pronounced Prolonged QT interval now present Electronically Signed On 12-23-2018 19:28:16 CREPING MACHINE OPERATOR by Chris Perkins [email or web address] <ELECTRONICALLY SIGNED> By: Chris Perkins MD, [facility] 12/23/18 1928 1351 1351 Chris Perkins MD, [facility] /EPI
[2018-12-23 21:38] VITALS: BP 149/92
== END 2018-12-23 21:40 | disposition still patient (30) ==
LOC: ER 13:44
PROVIDERS: Nurse Practitioner Family
DX: R07.89 Other chest pain (principal); I10 Essential (primary) hypertension; E78.5 Hyperlipidemia, unspecified; E11.9 Type 2 diabetes mellitus without complications; Z91.040 Latex allergy status; Z88.0 Allergy status to penicillin; Z88.2 Allergy status to sulfonamides; Z91.041 Radiographic dye allergy status

== ENCOUNTER → 2019-01-02 | Outpatient (CLI) | payer OTHER | LOC: RAD 13:45 | DX: N64.4 Mastodynia (principal) ==

== ENCOUNTER 2019-01-29 19:13 | Emergency (ER) | payer OTHER ==
[~2019-01-29] VITALS: Ht 165.1 cm; Wt 79.8 kg
[2019-01-29 20:29] LABS: ABSOLUTE NEUTROPHILS 2.8 thou/uL (1.4-8.2); BASOPHILS 1.3 % (0.0-2.0); EOSINOPHILS 1.7 % (0.0-3.0); HEMATOCRIT 41.6 % (37.0-47.0); HEMOGLOBIN 13.6 gm/dL (12.0-15.0); LYMPHOCYTES 40.8 % (24.0-44.0); MCH 31.9 pg (26.0-34.0); MCHC 32.6 g/dL (28.0-37.0); MCV 97.8 fL (80.0-100.0); MONOCYTES 10.2 % (1.0-8.0); PLATELET COUNT 229 thou/uL (150-400); RBC 4.25 mil/uL (4.20-5.00); RDW 14.8 % (10.5-14.5); WBC 6.1 thou/uL (4.0-11.0)
[2019-01-29 20:40] LABS: CALCIUM 9.6 mg/dL (8.5-10.1); CREATININE 1.4 mg/dL (0.6-1.0); POTASSIUM 3.4 mmol/L (3.5-5.1)
[2019-01-29 20:45] LABS: ALBUMIN 3.5 g/dL (3.4-5.0); TOTAL BILIRUBIN 0.3 mg/dL (<0.1-1.0); TOTAL PROTEIN 8.1 g/dL (6.4-8.2)
[2019-01-29 21:28] LABS: URINE BILIRUBIN 1+ (Negative); URINE BLOOD 3+ (Negative); URINE CLARITY CLOUDY; URINE COLOR YELLOW; URINE GLUCOSE-RANDOM* NEGATIVE (Negative); URINE KETONES TRACE (Negative); URINE NITRITE-REFLEX NEGATIVE (Negative); URINE PROTEIN (DIPSTICK) 1+ (Negative); URINE SPECIFIC GRAVITY >= 1.030 (1.005-1.035); URINE UROBILINOGEN 0.2 E.U./dl (0.2-1.0)
[2019-01-29 21:34] LABS: URINE LEUKOCYTES-REFLEX 2+ (Negative)
[2019-01-29] MEDS ORDERED: MACROBID 100 M100 M2 PO (21:41)
[2019-01-29 21:51] VITALS: BP 135/75
[2019-01-29 21:57] LABS: SQUAMOUS 0-3 Few /LPF (0-3); URINE WBC-REFLEX 6-15 Few /HPF (0-5)
[2019-01-29 21:58] LABS: CRYSTALS None Seen /LPF (None Seen); HYALINE CASTS >10 Many /LPF (None Seen); MUCUS 4-6 Moderate strn/LPF (None Seen)
--- NOTE | 2019-02-02 12:59 | EKG ---
[address] [place] [address] ELECTROCARDIOGRAM REPORT Name: ROSIE WAGONERLEY Lucien [facility] [id number] Admission: 01/29/19 Attend Phys: Discharge: 01/29/19 Date of : 46 Report #: [id number] THIS REPORT FOR: //name// [facility] ED Test Date: 2019-01-29 Test Time: 19:23:49 Pat Name: MANOJ WAGONER Department: Room: Gender: F Sleeve Separator: [place] [address] : 1950 Requested By: Simin Mendoza Order Number: [id number] MD: Dayday Tobar Measurements Intervals [place] Rate: 73 P: -17 NH: 194 QRS: -44 QRSD: 102 T: 49 QT: 412 QTc: 454 Interpretive Statements Sinus rhythm Abnormal R-wave progression, early transition Inferior infarct, old Compared to ECG 12/23/2018 13:51:47 Electronically Signed On 02-02-2019 12:58:52 RECREATIONAL DIRECTOR by Dayday Tobar [email or web address] <ELECTRONICALLY SIGNED> By: Dayday Tobar MD 02/02/19 1258 22 22 Dayday Tobar MD /NICKY
== END 2019-01-29 22:11 | disposition home or self-care (01) ==
LOC: ER 19:13
PROVIDERS: Nurse Practitioner
DX: N30.01 Acute cystitis with hematuria (principal); R55 Syncope and collapse; M79.604 Pain in right leg; I10 Essential (primary) hypertension; I71.4 Abdominal aortic aneurysm, without rupture; E11.9 Type 2 diabetes mellitus without complications; Z91.040 Latex allergy status; Z91.041 Radiographic dye allergy status; Z88.0 Allergy status to penicillin; Z88.2 Allergy status to sulfonamides

== ENCOUNTER 2019-02-25 15:50 | Inpatient (IN) | payer OTHER ==
[~2019-02-25] VITALS: Ht 165.1 cm; Wt 77.1 kg
[2019-02-25 16:03] VITALS: BP 85/51
[2019-02-25 16:59] LABS: HEMATOCRIT 39.3 % (37.0-47.0); HEMOGLOBIN 12.9 gm/dL (12.0-15.0); MCH 31.6 pg (26.0-34.0); MCHC 32.8 g/dL (28.0-37.0); MCV 96.4 fL (80.0-100.0); PLATELET COUNT 217 thou/uL (150-400); RBC 4.08 mil/uL (4.20-5.00); RDW 14.1 % (10.5-14.5); WBC 16.2 thou/uL (4.0-11.0)
[2019-02-25 17:01] LABS: CALCIUM 9.8 mg/dL (8.5-10.1); CREATININE 1.8 mg/dL (0.6-1.0); POTASSIUM 3.3 mmol/L (3.5-5.1)
[2019-02-25] MEDS ORDERED: CARVEDILOL12.5 MG PO (17:02)
[2019-02-25 17:20] LABS: ABSOLUTE NEUTROPHILS 13.8 thou/uL (1.4-8.2)
[2019-02-25 17:21] LABS: PLATELET ESTIMATE NORMAL
[2019-02-25 18:29] LABS: URINE BLOOD 3+ (Negative); URINE CLARITY CLOUDY; URINE COLOR YELLOW; URINE GLUCOSE-RANDOM* NEGATIVE (Negative); URINE KETONES NEGATIVE (Negative); URINE NITRITE-REFLEX NEGATIVE (Negative); URINE PROTEIN (DIPSTICK) 3+ (Negative); URINE SPECIFIC GRAVITY 1.025 (1.005-1.035)
[2019-02-25 18:34] LABS: ICTOTEST (BILI CONFIRMATORY) Negative (Negative); URINE BILIRUBIN NEGATIVE (Negative); URINE LEUKOCYTES-REFLEX 1+ (Negative)
[2019-02-25 18:43] LABS: BACTERIA-REFLEX >30 Many /HPF (None Seen); COARSE GRANULAR CASTS 0-3 Few /LPF (None Seen); SQUAMOUS >10 Many /LPF (0-3); TRANSITIONAL EPITHEL CELL 0-3 Few /LPF (None Seen); URINE WBC-REFLEX >25 Many /HPF (0-5)
[2019-02-25 18:44] LABS: AMORPHOUS URATES Moderate /LPF (None Seen); URINE RBC >20 Many /HPF (0-2)
[2019-02-25 19:14] LABS: APTT 33.8 Seconds (24.5-32.8); INR 1.1; PROTIME 10.8 Seconds (9.3-11.4)
[2019-02-25 20:32] LABS: ALBUMIN 2.7 g/dL (3.4-5.0); DIRECT BILIRUBIN 0.8 mg/dL (<0.1-0.2); MAGNESIUM 1.7 mg/dL (1.8-2.4); SGOT 16 U/L (15-37); SGPT 16 U/L (30-65); TOTAL BILIRUBIN 2.3 mg/dL (<0.1-1.0); TOTAL PROTEIN 6.7 g/dL (6.4-8.2); TROPONIN-I <0.06 ng/mL (<0.06)
[2019-02-25 20:53] VITALS: BP 106/63
[2019-02-25 21:14] VITALS: BP 108/65
[2019-02-25 22:08] VITALS: BP 99/58
--- NOTE | 2019-02-25 23:26 | NUR ---
PATIENT ARRIVED PER CART TO ROOM 204. IS ALERT X 4. SKIN WARM AND DRY. RESP EVEN AND UNLABORED. 02 AT 3LNC. 02 SAT 96-97%. LUNGS CTA TO UPPERN LOBES AND LOWER LOBES VERY COURSE. IV SITE IN RIGHT HAND THAT HAS NS FLUIDS INFUSING WELL. COMPLAINED OF RIGHT SIDE RAMYA THAT RADIATES TO FLANK AREA. USES WALKER TO WALK TO BATHROOM. IS STEADY ON HER FEET. NO SOA STATED BUT HAS COURSE LOWER LOBES , FROM PNEUMONIA. ALSO HAS BILATERAL EDEMA NOTED TO LEGS LEFT MORE THAN RIGHT LEG. TELE- SHOWS NSR. PAIN RATEING ABOUT A 4 AT PRESENT. CONT PLAN OF CARE.
--- NOTE | 2019-02-26 01:54 | NUR ---
PATIENT CONTINUE TO HAVE PAIN IN RIGHT BACK TO FLANK AREA. PAIN MEDICATIOMN GIVEN WITH SOME RELIEF. 02 AT 3LNC. STILL HAVING SOME COURSE LUNGS ON LOWER LOBES. DENIES ANY CHEST PAIN. ALSO HAVIGN PAIN ION HER RIGHT SHOULDER. TANG HERE TO SEE PATIENT ORDERED TO HAVE XRAY IN AM ON SHOULDER. NO SPUTUM NOTED YET. CONT PLAN OF CARE.
--- NOTE | 2019-02-26 04:10 | NUR ---
PATIENT UP TO VOID VOIDED ABOUT 400 CC OF BLOODY TINGED URINE. BLADDER SCAN AFTER VOID AND HAD 0 CC OF URINE FOR RESIDUAL.
[2019-02-26 05:26] LABS: HEMATOCRIT 34.5 % (37.0-47.0); HEMOGLOBIN 11.3 gm/dL (12.0-15.0); MCH 31.6 pg (26.0-34.0); MCHC 32.6 g/dL (28.0-37.0); RBC 3.56 mil/uL (4.20-5.00); RDW 14.2 % (10.5-14.5); WBC 13.3 thou/uL (4.0-11.0)
[2019-02-26 05:41] LABS: CALCIUM 8.3 mg/dL (8.5-10.1); CREATININE 1.1 mg/dL (0.6-1.0); POTASSIUM 3.5 mmol/L (3.5-5.1)
[2019-02-26 09:01] VITALS: BP 117/76
[2019-02-26 14:52] VITALS: BP 123/70
--- NOTE | 2019-02-26 17:20 | EKG ---
[address] [address] ELECTROCARDIOGRAM REPORT Name: RIZWANAMANOJ AGUILAR Room #: 412-P [facility] IN ..#: [id number] Admission: 02/25/19 Attend Phys: Lowell Daily MD Discharge: Date of : 46 Report #: [id number] THIS REPORT FOR: //name// [facility] ED Test Date: 2019-02-25 Test Time: 16:05:56 Pat Name: MANOJ WAGONER Department: Room: [facility] Gender: F Momd Teacher: MCKAY : 1950 Requested By: Jeremiah Hunter Order Number: [id number] MD: Dayday Tobar Measurements Intervals [place] Rate: 96 P: 7 CA: 218 QRS: -69 QRSD: 71 T: QT: 380 QTc: 481 Interpretive Statements Sinus rhythm Prolonged [place] interval Right ventricular hypertrophy Compared to ECG 01/29/2019 19:23:49 First degree AV block now present Right ventricular hypertrophy now present Electronically Signed On 02-26-2019 17:19:55 SHIRT FINISHER by Dayday Tobar [email or web address] <ELECTRONICALLY SIGNED> By: Dayday Tobar MD 02/26/19 1719 1605 04 Dayday Tobar MD /EPI
--- NOTE | 2019-02-26 18:00 | NUR ---
ASSUMED CARE OF PT AT SHIFT CHANGE. ASSESSMENT CHARTED. MEDS GIVEN PER APR. VSS. PT A&OX4. C/O OF FLANK/SHOULDER/AB PAIN TREATED WITH IV MEDS WITH PARTIAL RELIEF. PT SBA TO BATHROOM. NO DIFFICULTIES VOIDING. PT TRANSFERRED TO SENIOR SUITES AT APPROX 1500.
--- NOTE | 2019-02-26 19:05 | NUR ---
PT ARRIVED ON UNIT, AOX4, VSS, UP TO BED WITH STANDBY ASSIST. PT REPORTS NON CARDIAC PAIN. IV PATENT IN RIGHT WITH FLUIDS RUNNING. FALL PRECAUTIONS IN PLACE, CALL LIGHT/PERSONAL ITEMS IN REACH. WILL CONTINUE TO MONTIOR.
--- NOTE | 2019-02-27 04:55 | NUR ---
ASSUMED CARE OF PATIENT AT APPROX 1999. ASSESSMENT CHARTED. MEDICATIONS GIVEN PER APR. PATIENT IS A&OX4, VSS, O2 SATS WNL ON 3L. PATIENT REPORTS PAIN 9/10 ON FLANK, CHEST (NON-CARDIAC), AND SHOULDER. FENTANYL GIVEN WITH ASSIST FROM LEONID PIERRE. PATIENT GOT UP WITH THIS NURSE TO BSC W/ SOME SHORTNESS OF BREATH. HER URINE IS DARK YELLOW; NO BLOOD IN URINE NOTED. SCD'S IN PLACE. PER PHYSICIAN NOTE, PLAN IS TO CONTINUE ABX THX AND CONTINUE MONITOR KIDNEYS. FALL PRECAUTIONS IN PLACE. CALLS OUT APPROPRIATELY, WILL CONTINUE TO MONITOR AND FOLLOW POC
[2019-02-27 06:23] LABS: CALCIUM 8.3 mg/dL (8.5-10.1); CREATININE 0.8 mg/dL (0.6-1.0); POTASSIUM 3.6 mmol/L (3.5-5.1)
[2019-02-27 07:33] VITALS: BP 137/86
--- NOTE | 2019-02-27 10:45 | NUR ---
chart review. discussed with md, pt will be here through the weekend for ABX and IVF, possible dc on saturday03/02/2019. cm visited with pt, noted she on o2 and getting btx. "no i don't use oxygen at home."/geovanny. intro to cm, transition of care and ie home health. she reported in soft voice " live alone in apartment, 2nd floor, 10 steps up to home. don't use stair take the elevator. no dme. independent prior to admit. hh in past with [facility] might use them again, depends on what for. will need ride home"/geovanny. will cont following as needed for dc needs.
--- NOTE | 2019-02-27 10:48 | NUR ---
CM VISITED WITH DR OLSEN, PT WILL NEED ABX, FLUIDS OVER WEEKEND WITH POSSIBLE DC ON SATURDAY. PASSED ON TO CM TEAM..
[2019-02-27 15:57] VITALS: BP 138/88
--- NOTE | 2019-02-27 17:41 | NUR ---
ASSUMED CARE OF PATIENT AT 0715, PATIENT ALERT AND ORIENTED X 4. PATIENT UP WITH ASSIST X 1 TO BSC, UP TO THE CHAIR X 1 THIS SHIFT. PATIENT CONTINUES TO C/O PAIN WITH RIGHT SHOULDER, RIGHT FLANK, AND ABDOMEN AREA, RECEIVED FENTANYL 50 MCG IV AND NEW ORDER FOR HYDROCODONE 1 TABLET, WITH GOOD RELIEF, ALSO APPLIED MUSCLE RUB TO RIGHT SHOULDER. PATIENT HAS RIGHT HAND IV WITH NS AT 80CC./HR, RECEIVED 1 IV ANTIBIOTIC, STARTED PO LEVAFLOXACIN THIS AFTERNOON. PATIENT HAS O2 AT 4 LITERS/NC IN PLACE, SOA WHEN UP. POOR APPETITE, C/O NAUSEA X 2 THIS AHIFT, ZOFRAN 4 MG IV GIVEN X 2. C/O CONSTIPATION, MIRALAX GIVEN THIS SHIFT. WILL CONTINUE TO MONITOR.
[2019-02-27 21:30] VITALS: BP 134/83
[2019-02-27 22:20] LABS: HEMATOCRIT 29.9 % (37.0-47.0); HEMOGLOBIN 9.8 gm/dL (12.0-15.0); MCH 31.8 pg (26.0-34.0); MCV 96.3 fL (80.0-100.0); PLATELET COUNT 206 thou/uL (150-400); RDW 14.5 % (10.5-14.5); WBC 12.2 thou/uL (4.0-11.0)
[2019-02-27 23:17] LABS: ABSOLUTE NEUTROPHILS 8.4 thou/uL (1.4-8.2)
--- NOTE | 2019-02-28 04:14 | NUR ---
PATIENT ALERT AND ORIENTED X4. 02NC INCREASED TO 5L PER RT. PATIENT ACCEPTING TREATMENTS FROM RT PER ORDER. THIS NURSE RUBBED TOPICAL CREAM ON HER SHOULDERS, CHEST AND NECK WITH SOME RELIEF. PATIENT REMOVES NASAL CANNULA AT TIMES. IV INADVERTANTLY PULLED OUT BY PATIENT AND REPLACED BY THIS NURSE. BS MONITORED PER ORDER - NO INSULIN NEEDED. IVF INFUSING CONTINUOUSLY W/O COMPLICATION. TEMP DOWN FROM 99.0 TO 98.6. SCD'S IN PLACE. PATIENT UP TO BSC FREQUENTLY WITH ONE ASSIST. PER AM NURSE PATIENT HAS REQUESTED TO GO TO REHAB BEFORE RETURNING HOME SHE LIVES INDEPENDENTLY AT A FACILITY. COUGH WITH YELLOW SPUTUM NOTED. VERY SMALL NOSE BLEED WHICH STOPPED ITSELF. RESTING QUIETLY. WILL MONITOR.
[2019-02-28 04:17] LABS: CALCIUM 8.8 mg/dL (8.5-10.1); CREATININE 0.8 mg/dL (0.6-1.0); POTASSIUM 3.1 mmol/L (3.5-5.1)
[2019-02-28 04:50] LABS: HEMATOCRIT 26.8 % (37.0-47.0); HEMOGLOBIN 8.9 gm/dL (12.0-15.0); MCH 32.4 pg (26.0-34.0); MCHC 33.3 g/dL (28.0-37.0); MCV 97.4 fL (80.0-100.0); RBC 2.75 mil/uL (4.20-5.00); RDW 14.5 % (10.5-14.5); WBC 12.3 thou/uL (4.0-11.0)
[2019-02-28 07:22] VITALS: BP 121/64
[2019-02-28 15:58] VITALS: BP 110/68
--- NOTE | 2019-02-28 17:31 | NUR ---
PT IS AOX4, VSS, PAIN CONTROLLED WITH ORAL ANALGESIC NEEDED. PT ON 6L O2 PER RT. PT UP AD FARAZ WITH STANDBY ASSIST. PT TOLERATING DIET, BUT HAS A POOR APPETITE. NO N/V THIS SHIFT. IV IN L FA IS PATENT WITH FLUIDS RUNNING. PT RECEIVED ORAL ANTIBIOTIC. FALL PRECAUTIONS IN PLACE. CALL LIGHT/PERSONAL BELONGINGS IN REACH. WILL CONTINUE TO MONITOR PT.
[2019-02-28 19:55] VITALS: BP 129/80
--- NOTE | 2019-03-01 02:57 | NUR ---
PATIENT ALERT AND ORIENTED X4. UP TO BSC WITH ONE SBA. COOPERATIVE AND PLEASANT. IVF INFUSING AT BEGINNING OF SHIFT, HOWEVER, IT INFILTRATED AND WILL BE REPLACED BY ASSISTANT SALES DIRECTOR TONIGHT. CONTINUES TO C/O PAIN AND HAS BEEN MEDICATED X2 AT TIME OF NOTE. ALSO APPLIED TOPICAL MUSCLE RELAXER WITH SOME RELIEF THAT DOES NOT LAST MORE THAN AN HOUR OR TWO. BS MONITORED PER ORDER. 02NC AT 6L AND RT TX GIVEN PER ORDER. PATIENT STATES THAT SHE LIKES THE NEW RT TREATMENTS BETTER. SCD'S IN PLACE. RESTING AT TIME OF NOTE. WILL MONITOR.
[2019-03-01 04:52] LABS: HEMATOCRIT 26.1 % (37.0-47.0); HEMOGLOBIN 8.9 gm/dL (12.0-15.0); MCH 32.4 pg (26.0-34.0); MCV 95.5 fL (80.0-100.0); RBC 2.73 mil/uL (4.20-5.00); RDW 14.2 % (10.5-14.5); WBC 10.1 thou/uL (4.0-11.0)
[2019-03-01 05:15] LABS: CREATININE 0.7 mg/dL (0.6-1.0); POTASSIUM 3.1 mmol/L (3.5-5.1)
[2019-03-01 07:21] VITALS: BP 146/87
[2019-03-01 14:55] VITALS: BP 144/80
--- NOTE | 2019-03-01 18:30 | NUR ---
PT ASSESSED AT START OF SHIFT. NEEDS MUCH MOTIVATION TO BE OUT OF BED AND WALK IN HALLS. ENC TO USE I/S HOURLY. OXYGEN NEEDS HAVE BEEN AT 6L NC BUT SOME BETTER THIS AFTERNOON DECREASED TO 5L. DR. OLSEN IN THIS AM AND CONSULTED PULMONARY TO SEE AND STARTED PT ON LEVAQUIN. PT HAS BEEN HAVING NAUSEA W/ SOME WRETCHING THIS EVENING. IV ZOFRAN GIVEN W/ SOME RELIEF. HAD ANOTHER BM WHICH WAS SOFT. SISTER HERE FOR LONG VISIT. PT IS WILLING TO GO FOR REHAB PRIOR TO GOING HOME.
[2019-03-01 20:40] VITALS: BP 141/78
[2019-03-02 06:14] LABS: HEMATOCRIT 24.8 % (37.0-47.0); HEMOGLOBIN 8.4 gm/dL (12.0-15.0); MCH 32.2 pg (26.0-34.0); MCHC 33.8 g/dL (28.0-37.0); MCV 95.2 fL (80.0-100.0); RBC 2.61 mil/uL (4.20-5.00); RDW 13.9 % (10.5-14.5); WBC 9.6 thou/uL (4.0-11.0)
--- NOTE | 2019-03-02 06:28 | NUR ---
PATIENT ALERT AND ORIENTED X4. UP TO BSC SEVERAL TIME DURING THE NIGHT. NO BM. 02NC 5L PER RT. PATIENT TAKING TREATMENTS, HOWEVER, REFUSED ONE DURING THE NIGHT. SOME SOA WITH EXERTION. C/O PAIN TO CHEST AND MEDICATED WITH PRN THAT HAD SOME RELIEF, HOWEVER, THE PAIN RETURNS. SOME NAUSEA AND MEDICATED WITH ZOFRAN WITH GOOD RESULTS - NO EMESIS. PATIENT CONCERNED ABOUT HER APPETITE AND THE PAIN. STATED SHE WILL SPEAK WITH THE DOCTORS TODAY. RESTING QUIETLY AT TIME OF NOTE. WILL MONITOR.
[2019-03-02 06:29] LABS: CALCIUM 9.1 mg/dL (8.5-10.1); CREATININE 0.7 mg/dL (0.6-1.0)
[2019-03-02 06:36] LABS: POTASSIUM 2.9 mmol/L (3.5-5.1)
[2019-03-02 08:34] VITALS: BP 138/87
--- NOTE | 2019-03-02 12:09 | NUR ---
SW reviewed chart and spoke with nursing and attending physician. Pt is progressing towards goals for discharge. PT/OT/ST ordered to evauate pt for recommendations for discharge disposition. SW met with pt at bedside to discuss discharge plan. Pt states she is agreeable with going to SNF for rehab prior to returning home. SNF list provided to pt for review. SW is following to assist as needed with discharge planning.
[2019-03-02 18:03] VITALS: BP 132/70
--- NOTE | 2019-03-02 19:52 | NUR ---
PT REQUESTED THERAPHY CONSULTS BUT THEN REFUSED TO WORK WITH THEM STATING SHE JUST WANTED TO SLEEP...ALSO REFUSED LAB REDRAW FOR K and Mag...STATED SHE WILL LET THEM REDRAW TONIGHT...
[2019-03-02 20:49] VITALS: BP 99/61
[2019-03-02 21:40] LABS: MAGNESIUM 1.5 mg/dL (1.8-2.4)
[2019-03-03 00:30] VITALS: BP 128/82
--- NOTE | 2019-03-03 06:05 | NUR ---
Assumed pt care at 1900. Pt is A/OX4, VSS. Up with SBA to BSC. Pt had declined blood work to be rechecked at 1400, talked to pt about it and pt ok for K+,Mg recheck and it was done at 2100. K+ is 4.0 but Magnesium still 1.5,a doze of Mag Oxide per electrolyte protol at 0100 awaiting to be rechecked this morning. Pt asking why she can't get a PICC line for lab draws educated on infection risks and that's never the reason for line placement,pt verbalized understanding. C/o nausea w/o emesis as well as non cardiac chest pain medicated per EMAR with some relief reported. Had a loose medium Bm this shift, urine still dark yellow in color PO intake encouraged but pt not so willing to. Fall precautions in place, calls appropriately for help. Oxygen titrated to 3L/NC by RT this nurse,resting w/o any distress noted sats 95%. Will continue to monitor pt.
[2019-03-03 07:31] VITALS: BP 143/86
--- NOTE | 2019-03-03 12:13 | NUR ---
SW reviewed chart and spoke with nursing and attending physician. Pt is slowly progressing towards goals for discharge. SW met with pt at bedside to discuss post-acute placement. Pt requests SNF referral to be faxed to [facility] for review. Discharge anticipated in 1-2 days. land planner to fax referral to [facility] for review. SW is following to assist as needed with discharge planning.
--- NOTE | 2019-03-03 13:53 | NUR ---
DISCHARGE PLANNING. POST ACUTE RECOMMENDED AT DISCHARGE. PATIENT REFERRAL FAXED TO [facility] PER REQUEST. CALL PLACED TO PATRICIO, ABILIO GARCIA, TO NOTIFY. PATRICIO TO REVIEW AND NOTIFY CM. PATIENT ANTICIPATED DISCHARGE IN 1-2 DAYS. PATRICIO AWARE.
[2019-03-03 16:30] VITALS: BP 120/65
--- NOTE | 2019-03-03 19:44 | NUR ---
ASSUMED CARE OF PATIENT AT 0715, PATIENT ALERT AND ORIENTED X 4. UP WITH ASSIST X 1 WITH WALKER AND OXYGEN AT 3 LITERS/NC. PATIENT CONTINUES TO C/O PAIN WITH MULTIPLE AREAS, GERONIMO. SHOULDERS/R/L FLANK. AND BREAST AREA BILATERAL. TYLENOL 650MG GIVEN THIS AM AND HYDROCODONE 1 TABLET GIVEN THIS EVENING, C/O NAUSEA, ZOFRAN 4 MG IV GIVEN. PATIENT AMBULATED TO DINING AREA FOR LUNCH. SHE PLAYED CARDS AND AMBULATED BACK TO HER ROOM. MUSCLE RUB APPLIED TO BILATERAL SHOULDERS. PLAN TO GO TO SKILLED FACILITY AFTER DISCHARGE. PATIENT ENCOURAGED TO WORK WITH PHYSICAL THERAPY. WILL CONTINUE TO MONITOR.
[2019-03-03 21:17] VITALS: BP 105/66
--- NOTE | 2019-03-04 06:45 | NUR ---
Assumed care at 1900. Pt is A/OX4, VSS. C/o pain all around chest,right flank and shoulders medicated with Diamond/muscle rub with partial relief reported. Up with SBA to BSC. C/o nausea w/o emesis medicated per EMAR. Pt voiding dark yellow urine reports being a side effect from Diamond states she takes Vicodin at home explained to pt its the same thing and no known effect on urine. Pt with poor appetite. Fall precautions in place. On oxygen 3L/NC.
[2019-03-04 07:47] VITALS: BP 115/73
--- NOTE | 2019-03-04 08:59 | HC ---
[facility] [place] [address] [place] [address] CONSULTATION Name: MANOJ WAGONER Room #: 412-P [facility] IN M.R.#: [id number] Admission: 02/25/19 Attend Phys: Lowell Daily MD Discharge: Date of : 46 Report #: [id number] THIS REPORT FOR: //name// CC: Rubén Daily REASON FOR CONSULTATION: Pyelonephritis. REASON FOR PRESENTATION: Back flanks pain. HISTORY OF PRESENT ILLNESS: A 68-year-old who presented to the hospital, not feeling well with cough and shortness of breath. Along with that, she had right-sided flank pain with hematuria and frequency. She also reported to subjective fever. No known previous urinary tract infections. No similar episodes in the past. She is known to have hypertension and is maintained on carvedilol and Lasix. She also takes p.r.n. nonsteroidal anti-inflammatory medications. She has a thoracic aneurysm, status post stent graft. She is followed by Cardiology. When the patient presented to the Emergency Room, a CT was done and this was suggestive of pyelonephritis. I previously saw this patient back in 2016 for blood pressure control. The patient has had major issues with hypotension on her presentation. She continues to have normal kidney function. PAST MEDICAL HISTORY: 1. Hypertension. 2. Cerebral aneurysm. 3. Thoracic aneurysm, status post stent graft. 4. Hysterectomy. 5. Appendectomy. 6. Tonsillectomy. SOCIAL HISTORY: She used to be a after school teacher. She quit smoking in 2002. FAMILY HISTORY: Her father away because of heart attack. Her mother had hypertension. ALLERGIES: IODINATED CONTRAST. MEDICATIONS: 1. Carvedilol. 2. Lasix. 3. Atorvastatin. 4. Cholecalciferol. REVIEW OF SYSTEMS: GENERAL: Significant for weakness, fever, or chills. CARDIOVASCULAR: Significant for chest pain. [facility] [address] [place] [address] CONSULTATION Name: MANOJ WAGONER Room #: 412-P [facility] IN [facility]#: [id number] Admission: 02/25/19 Attend Phys: Lowell Daily MD Discharge: Date of : 46 Report #: [id number] PULMONARY: Significant for cough, but no hemoptysis. GASTROINTESTINAL: Reduced oral intake. MUSCULOSKELETAL: Back pain. NEUROLOGICAL: No headache, no dizziness. PHYSICAL EXAMINATION: GENERAL: She is alert and oriented. Blood pressure is now more stable at 108/65. Temperature is 37.0. HEAD AND NECK: Dry mucous membrane. CHEST: No crackles. CARDIOVASCULAR: Regular with no rub. ABDOMEN: Soft with tenderness in the right flank area. LOWER EXTREMITIES: No edema. LABORATORY DATA: Reviewed. White blood cell count is down to 13.3 from 16.2. Chemistry: Creatinine is down to 1.1. She does have significantly elevated total bilirubin at 2.3. UA is suggestive of UTI. CT abdomen and pelvis showed perinephric inflammatory stranding. ASSESSMENT, IMPRESSION AND PLAN: 1. Pyelonephritis. 2. Hypertension. 3. Diabetes mellitus. 4. Hypotension. 5. History of thoracic aneurysm. 6. Acute kidney injury due to hypertension. 6. Continue to hold all blood pressure medications. 7. Treat her urinary tract infection. 8. CT findings are consistent with pyelonephritis. 9. Creatinine seems to be back to her usual. 10. Available for any questions. <ELECTRONICALLY SIGNED> By: Lisa Armstrong MD 03/04/19 0859 0809 0843 Lisa Armstrong MD /nt
--- NOTE | 2019-03-04 10:40 | NUR ---
SW reviewed chart and spoke with nursing and attending physician. [facility] liaison came to meet with pt. [facility] can accept pt when medically stable. SW met with pt at bedside to provide update. Pt is aware and in agreement with discharge plan. SW is following to assist as needed with discharge planning.
--- NOTE | 2019-03-04 11:24 | NUR ---
Assess due to length of stay. Admitted with hypoxia, VANESSA. Pt c/o recent decreased appetite for few days. No reported wt changes from usual of 170-175 lb. Has hx DM but BG very well controlled, no medication required. Has been drinking 2-3 Ensure Enlive supplements while appetite down. Food preferences obtained for lunch today. Otherwise pt orders own meals. Low nutrition risk.
[2019-03-04 12:07] LABS: ALBUMIN 2.6 g/dL (3.4-5.0); CALCIUM 8.9 mg/dL (8.5-10.1); CREATININE 0.8 mg/dL (0.6-1.0); PHOSPHORUS 2.7 mg/dL (2.5-4.9); POTASSIUM 3.9 mmol/L (3.5-5.1); TOTAL BILIRUBIN 3.1 mg/dL (<0.1-1.0); TOTAL PROTEIN 6.2 g/dL (6.4-8.2)
[2019-03-04 15:22] VITALS: BP 110/71
--- NOTE | 2019-03-04 17:56 | NUR ---
ASSUMED CARE OF PATIENT AT 0715, PATIENT UP WITH MIN. ASSIST TO BSC, CAN AMBULATE SHORT DISTANCES. WORKED WITH OT TODAY, HAD SHOWER. PATIENT CONTINUES WITH PAIN WITH GERONIMO. SHOULDERS, RIGHT FLANK AREA, AND BREAST AREA. PATIENT HAS RECEIVED HYDROCODONE X 2 THIS SHIFT. PATIENT HAS RIGHT HAND IV IN PLACE. PATIENT C/O NAUSEA X 1 THIS SHIFT, RECEIVED ZOFRAN 4MG IV X 1 THIS SHIFT. PATIENT HAS DARK ORANGE URINE, REPORTED TO DR WALTERS, ORDER FOR CT OF ABDOMEN. VSS. SHIFT ASSESSMENT DONE. WILL CONTINUE TO MONITOR.
[2019-03-04 20:09] VITALS: BP 143/81
[2019-03-04 22:28] LABS: URINE BILIRUBIN NEGATIVE (Negative); URINE BLOOD TRACE (Negative); URINE CLARITY CLEAR; URINE COLOR YELLOW; URINE GLUCOSE-RANDOM* NEGATIVE (Negative); URINE KETONES NEGATIVE (Negative); URINE LEUKOCYTES-REFLEX NEGATIVE (Negative); URINE NITRITE-REFLEX NEGATIVE (Negative); URINE PROTEIN (DIPSTICK) TRACE (Negative); URINE UROBILINOGEN 0.2 E.U./dl (0.2-1.0)
--- NOTE | 2019-03-05 04:59 | NUR ---
Assumed pt care at 1900. Pt is A/OX4, VSS. Pt c/o of right flank pain medicated with Fentanyl with relief reported. Pt did go for a abd/pelvic CT at [facility],UA obtained as well pt updated on results. Will relay to day nurse this morning. Up with AX1, RW/GB. Continent of B&B. Fluids encouraged,urine still dark yellow in color. Fall precautions in place and pt calls appropriately. A new IV had been placed by this nurse prior to CT scan noted to be infiltrated at this time, will attempt to start another one.
[2019-03-05 08:05] VITALS: BP 118/74
[2019-03-05 09:45] VITALS: BP 118/74
--- NOTE | 2019-03-05 10:41 | NUR ---
OSEI notified that pt needs to transfer to another acute hospital for urology services. Pt with kidney abscess. Pt would prefer to go to [facility]. OSEI placed call to [facility] and spoke with Marshall. Pt's info and contact info for attending physician provided. SW to fax face sheet and insurance cards. OSEI contacted [employer] for copies of insurance cards. OSEI spoke with Aysa in radiology to request radiology images to the [facility] to review. [facility]SEI is following to assist as needed with discharge planning.
--- NOTE | 2019-03-05 16:06 | NUR ---
PT AOX4, VSS, REPORTS PAIN ON RIGHT SIDE 9/10. PT RECEIVED PAIN ANALGESICS ORDERED. PT IS UP WITH SB ASSIST. PT TOLERATING DIET, CALLED REPORT TO NURSE CALDERON AT [facility]. AMBULANCE CAME TO TRANSPORT PT TO [facility]. PT BELONGINGS PACKED AND SENT TO OTHER FACILITY.
== END 2019-03-05 16:00 | disposition short-term general hospital (02) | DRG 871 ==
LOC: ER 15:50 → 2N 20:28 → 4N 20:28 → EROBS 20:28 → 2N 21:17 → ENTRNSPT 02-26 14:31 → EDTRNSPTSTS 02-26 14:35 → 4N 02-26 14:40
PROVIDERS: Emergency Medicine; Internal Medicine; Nurse Practitioner Family; ADMIT Hospitalist
DX: A41.9 Sepsis, unspecified organism (principal); J18.9 Pneumonia, unspecified organism; N15.1 Renal and perinephric abscess; N12 Tubulo-interstitial nephritis, not specified as acute or chronic; N17.9 Acute kidney failure, unspecified; E11.9 Type 2 diabetes mellitus without complications; I10 Essential (primary) hypertension; R07.89 Other chest pain; R31.9 Hematuria, unspecified; E87.6 Hypokalemia; I95.9 Hypotension, unspecified; E78.5 Hyperlipidemia, unspecified; I67.1 Cerebral aneurysm, nonruptured; R63.0 Anorexia; E55.9 Vitamin D deficiency, unspecified; E53.8 Deficiency of other specified B group vitamins; E80.6 Other disorders of bilirubin metabolism; Z90.710 Acquired absence of both cervix and uterus; Z90.89 Acquired absence of other organs; Z95.828 Presence of other vascular implants and grafts; Z83.3 Family history of diabetes mellitus; Z86.718 Personal history of other venous thrombosis and embolism; Z79.01 Long term (current) use of anticoagulants; Z68.28 Body mass index [BMI] 28.0-28.9, adult; Z79.82 Long term (current) use of aspirin; Z79.899 Other long term (current) drug therapy; Z91.041 Radiographic dye allergy status; Z88.0 Allergy status to penicillin; Z88.2 Allergy status to sulfonamides; Z91.048 Other nonmedicinal substance allergy status; Z82.49 Family history of ischemic heart disease and other diseases of the circulatory system
CPT/HCPCS: 10081; 10790

== ENCOUNTER 2020-04-09 12:04 | Emergency (ER) | payer OTHER ==
[~2020-04-09] VITALS: Ht 165.1 cm; Wt 79.4 kg
[~2020-04-09 12:04] MED LIST changes: +CARVEDILOL12.5 MG PO
[2020-04-09 14:01] LABS: HEMATOCRIT 40.8 % (37.0-47.0); HEMOGLOBIN 13.4 gm/dL (12.0-15.0); MCH 31.9 pg (26.0-34.0); MCHC 32.8 g/dL (28.0-37.0); MCV 97.2 fL (80.0-100.0); RBC 4.2 mil/uL (4.20-5.00); RDW 14.2 % (10.5-14.5); WBC 5.7 thou/uL (4.0-11.0)
[2020-04-09 14:05] LABS: ANION GAP 9 mmol/L (7-16); BUN 18 mg/dL (7-18); CALCIUM 9.9 mg/dL (8.5-10.1); CHLORIDE 102 mmol/L (98-107); CO2 29 mmol/L (21-32); GLUCOSE 105 mg/dL (74-106); POTASSIUM 3.4 mmol/L (3.5-5.1); SODIUM 140 mmol/L (136-145)
[2020-04-09 14:14] LABS: URINE BILIRUBIN NEGATIVE (Negative); URINE BLOOD 1+ (Negative); URINE CLARITY CLEAR; URINE COLOR YELLOW; URINE GLUCOSE-RANDOM* NEGATIVE (Negative); URINE KETONES NEGATIVE (Negative); URINE LEUKOCYTES-REFLEX NEGATIVE (Negative); URINE NITRITE-REFLEX NEGATIVE (Negative); URINE PROTEIN (DIPSTICK) 2+ (Negative); URINE SPECIFIC GRAVITY >= 1.030 (1.005-1.035); URINE UROBILINOGEN 0.2 E.U./dl (0.2-1.0)
[2020-04-09 14:15] LABS: ALBUMIN 3.6 g/dL (3.4-5.0); SGOT 13 U/L (15-37); SGPT 20 U/L (14-59); TOTAL BILIRUBIN 0.4 mg/dL (0.2-1.0); TOTAL PROTEIN 7.8 g/dL (6.4-8.2); TROPONIN-I <0.06 ng/mL (<0.06)
[2020-04-09 14:28] LABS: HYALINE CASTS 0-3 Few /LPF (None Seen); MUCUS None Seen strn/LPF (None Seen); SQUAMOUS 0-3 Few /LPF (0-3)
[2020-04-09 14:29] LABS: CRYSTALS None Seen /LPF (None Seen); URINE RBC 3-10 Few /HPF (0-2); URINE WBC-REFLEX 0-5 Rare /HPF (0-5)
[2020-04-09] MEDS ORDERED: ULTRAM50 MG PO (15:40)
[2020-04-09] MEDS ORDERED: ROBAXIN 750 MG750 MG PO (15:40)
[2020-04-09 17:58] VITALS: BP 163/101
--- NOTE | 2020-04-10 14:11 | EKG ---
[place] [address] [facility] [place] [address] ELECTROCARDIOGRAM REPORT Name: MANOJ WAGONER Room #: [facility]#: [id number] Admission: 04/09/20 Attend Phys: Discharge: 04/09/20 Date of : 46 Report #: [id number] [facility] ED Test Date: 2020-04-09 Test Time: 12:40:46 Pat Name: MANOJ WAGONER Department: Room: Gender: F Onshore Diver: victorino : 1950 Requested By: Linda Cifuentes Order Number: [id number] MD: Chris Perkins Measurements Intervals Healy Rate: 101 P: 31 TX: 215 QRS: 255 QRSD: 86 T: 0 QT: 336 QTc: 436 Interpretive Statements Sinus tachycardia Prolonged TX interval Inferior infarct, old Compared to ECG 02/25/2019 16:05:56 Myocardial infarct finding now present No significant change was found Electronically Signed On 04-10-2020 14:11:33 SEX THERAPIST by Chris Perkins [email or web address] <ELECTRONICALLY SIGNED> By: Chris ePrkins MD, [facility] 04/10/20 1411 1240 1240 Chris Perkins MD, FACC /EPI
== END 2020-04-09 17:59 | disposition home or self-care (01) ==
LOC: ER 12:04
PROVIDERS: Nurse Practitioner Family
DX: M25.552 Pain in left hip (principal); M54.6 Pain in thoracic spine; I10 Essential (primary) hypertension; E78.5 Hyperlipidemia, unspecified; E11.9 Type 2 diabetes mellitus without complications; Z79.82 Long term (current) use of aspirin; Z79.899 Other long term (current) drug therapy; Z88.0 Allergy status to penicillin; Z88.2 Allergy status to sulfonamides; Z91.041 Radiographic dye allergy status; Z91.040 Latex allergy status

== ENCOUNTER 2020-09-02 10:00 | Inpatient (IN) | payer OTHER ==
[~2020-09-02] VITALS: Ht 165.1 cm; Wt 72.7 kg
[~2020-09-02 10:00] MED LIST changes: +ROBAXIN 750 MG750 MG PO; +ULTRAM50 MG PO
[2020-09-02 10:06] VITALS: BP 83/52
[2020-09-02 11:00] LABS: ABSOLUTE NEUTROPHILS 2.6 thou/uL (1.4-8.2); BASOPHILS 1.2 % (0.0-2.0); EOSINOPHILS 3.3 % (0.0-3.0); HEMATOCRIT 38.7 % (37.0-47.0); HEMOGLOBIN 12.9 gm/dL (12.0-15.0); LYMPHOCYTES 43.1 % (24.0-44.0); MCH 32.2 pg (26.0-34.0); MCHC 33.4 g/dL (28.0-37.0); MCV 96.6 fL (80.0-100.0); MONOCYTES 9.8 % (1.0-8.0); PLATELET COUNT 225 thou/uL (150-400); POLYS 42.6 % (36.0-66.0); RBC 4.01 mil/uL (4.20-5.00); WBC 6.1 thou/uL (4.0-11.0)
[2020-09-02 11:13] LABS: ANION GAP 9 mmol/L (7-16); BUN 20 mg/dL (7-18); CALCIUM 8.7 mg/dL (8.5-10.1); CHLORIDE 107 mmol/L (98-107); CO2 26 mmol/L (21-32); CREATININE 1.4 mg/dL (0.6-1.0); GLUCOSE 127 mg/dL (74-106); POTASSIUM 3.4 mmol/L (3.5-5.1); SODIUM 142 mmol/L (136-145)
[2020-09-02 11:22] LABS: ALBUMIN 3.4 g/dL (3.4-5.0); SGOT 13 U/L (15-37); SGPT 17 U/L (30-65); TOTAL BILIRUBIN 0.4 mg/dL (0.2-1.0); TOTAL PROTEIN 7.6 g/dL (6.4-8.2); TROPONIN-I <0.06 ng/mL (<0.06)
[2020-09-02 11:30] LABS: URINE BILIRUBIN NEGATIVE (Negative); URINE BLOOD 1+ (Negative); URINE CLARITY CLOUDY; URINE COLOR YELLOW; URINE GLUCOSE-RANDOM* NEGATIVE (Negative); URINE KETONES TRACE (Negative); URINE LEUKOCYTES-REFLEX 2+ (Negative); URINE NITRITE-REFLEX POSITIVE (Negative); URINE PROTEIN (DIPSTICK) 1+ (Negative); URINE SPECIFIC GRAVITY 1.025 (1.005-1.035); URINE UROBILINOGEN 0.2 E.U./dl (0.2-1.0)
[2020-09-02 11:46] LABS: CRYSTALS None Seen /LPF (None Seen); HYALINE CASTS 0-3 Few /LPF (None Seen); SQUAMOUS >10 Many /LPF (0-3); URINE RBC 3-10 Few /HPF (NONE SEEN); URINE WBC-REFLEX >25 Many /HPF (0-5)
[2020-09-02 21:39] VITALS: BP 155/94
[2020-09-02 21:59] VITALS: BP 157/97
[2020-09-02 22:25] VITALS: BP 158/85
[2020-09-03 03:42] VITALS: BP 158/96
--- NOTE | 2020-09-03 04:01 | NUR ---
PT WAS ADMITTED TO THE UNIT FROM THE ER IN A STABLE CONDITION.ADMISSION HX,EDUCATION AND ASSESSMENT COMPLETED.PT C/O PAIN TO HER BLE AND L BREAST,MANAGED WITH MED.PT CONCERNED ABOUT HER ELEVATED BP,WAS INFORMED THAT SHE RECEIVED HER BP MED IN THE ER BEFORE COMING TO THE FLOOR.IV ON HER LFA INFILTRATED,NEW ONE PUT ON HER RFA.PT NOT COMPLIANT WITH FALL PRECAUTIONS CONSTANT EDUCATION GIVEN.PT RESTING ON HER BED AT THIS TIME.CALL KIT WHEAT.
[2020-09-03 07:50] VITALS: BP 142/97
[2020-09-03] MEDS ORDERED: CEFUROXIME500 MG PO (08:40)
--- NOTE | 2020-09-03 10:36 | EKG ---
[address] [place] [address] ELECTROCARDIOGRAM REPORT Name: MANOJ WAGONER Room #: 443- ADM IN M.R.#: [id number] Admission: 09/02/20 Attend Phys: Silvia Vora Discharge: Date of : 46 Report #: [id number] [facility] ED Test Date: 2020-09-02 Test Time: 10:22:06 Pat Name: MANOJ WAGONER Department: Room: 443 Gender: F Personnel Training Officer: unknown : 1950 Requested By: Silvia Vora Order Number: [id number] MD: Chris Perkins Measurements Intervals Wells Rate: 84 P: -3 AL: 221 QRS: -80 QRSD: 79 T: 4 QT: 451 QTc: 534 Interpretive Statements Sinus rhythm Prolonged AL interval Inferior infarct, old Early R wave progression Nonspecific T wave abnormality Prolonged QT interval Compared to ECG 04/09/2020 12:40:46 QT interval is lengthened Electronically Signed On 09-03-2020 10:36:14 CDT by Chris Perkins [email or web address] <ELECTRONICALLY SIGNED> By: Chris Perkins MD, [facility] 09/03/20 1036 1022 1022 Chris Perkins MD, [facility] /EPI
[2020-09-03 13:42] VITALS: BP 142/97
--- NOTE | 2020-09-03 14:20 | NUR ---
PT ASSESSED AT START OF SHIFT. PT FEELING MUCH BETTER. HAD IV FLUIDS AND ANTIBIOTICS FOR UTI. VSS. DISCHARGING AT THIS TIME AND WILL F/U W/ PRIMARY.
== END 2020-09-03 14:21 | disposition home or self-care (01) | DRG 312 ==
LOC: ER 10:00 → EROBS 12:45 → 4S 22:07
PROVIDERS: Emergency Medicine; ADMIT Hospitalist; ATTEND Hospitalist
DX: I95.2 Hypotension due to drugs (principal); N39.0 Urinary tract infection, site not specified; I10 Essential (primary) hypertension; E78.5 Hyperlipidemia, unspecified; E11.9 Type 2 diabetes mellitus without complications; M79.605 Pain in left leg; M79.604 Pain in right leg; R13.10 Dysphagia, unspecified; T50.995A Adverse effect of other drugs, medicaments and biological substances, initial encounter; Y92.89 Other specified places as the place of occurrence of the external cause; Z87.891 Personal history of nicotine dependence; Z86.718 Personal history of other venous thrombosis and embolism; Z86.711 Personal history of pulmonary embolism
CPT/HCPCS: 10100

== ENCOUNTER 2021-02-08 20:55 | Inpatient (IN) | payer OTHER ==
[~2021-02-08] VITALS: Ht 167.6 cm; Wt 76.2 kg
[~2021-02-08 20:55] MED LIST changes: +CEFUROXIME500 MG PO
[2021-02-08 21:02] VITALS: BP 184/115
[2021-02-09] MEDS ORDERED: NEURONTIN 300M300 M2 PO (01:27)
[2021-02-09 01:58] LABS: ABSOLUTE NEUTROPHILS 2.1 thou/uL (1.4-8.2); EOSINOPHILS 3.3 % (0.0-3.0); HEMATOCRIT 39.5 % (37.0-47.0); HEMOGLOBIN 13.1 gm/dL (12.0-15.0); LYMPHOCYTES 49.7 % (24.0-44.0); MCH 32.3 pg (26.0-34.0); MCHC 33.1 g/dL (28.0-37.0); MCV 97.7 fL (80.0-100.0); MONOCYTES 12.5 % (1.0-8.0); PLATELET COUNT 231 thou/uL (150-400); POLYS 33.5 % (36.0-66.0); RBC 4.04 mil/uL (4.20-5.00); RDW 15.5 % (10.5-14.5); WBC 6.1 thou/uL (4.0-11.0)
[2021-02-09 02:02] LABS: CREATININE 0.7 mg/dL (0.6-1.0); POTASSIUM 4.1 mmol/L (3.5-5.1)
[2021-02-09 02:12] LABS: ALBUMIN 3.3 g/dL (3.4-5.0); TOTAL BILIRUBIN 0.4 mg/dL (0.2-1.0); TOTAL PROTEIN 7.8 g/dL (6.4-8.2)
[2021-02-09 07:45] VITALS: BP 154/96
[2021-02-09 12:05] LABS: CHOLESTEROL 169 mg/dL (<200); HDL CHOLESTEROL 56 mg/dL (>40); LDL CHOLESTEROL 100 mg/dL (<100); TRIGLYCERIDE 66 mg/dL (<150); VLDL 13 mg/dL (<40)
[2021-02-09 14:06] VITALS: BP 166/101
--- NOTE | 2021-02-09 15:07 | 2DMMODE ---
[facility] [address] [place] [address] 2 D/M-MODE ECHOCARDIOGRAM Name: MANOJ WAGONER Room #: 140-7 ADM IN M.R.#: [id number] Admission: 02/09/21 Attend Phys: Lam Sorenson MD Discharge: Date of : 46 Report #: [id number] THIS REPORT FOR: cc: Rubén Hernandez K. Steven DO Lammoglia, Francisco J. MD ~ APPROVED REPORT Study performed: 02/09/2021 13:49:39 EXAM: Comprehensive 2D, Doppler, and color-flow Echocardiogram Patient Location: ER Room #: 2 Status: routine BSA: 1.86 HR: 86 bpm BP: 173/116 mmHg Rhythm: Atrial Fibrillation Other Information Study Quality: Adequate Indications Atrial Fibrillation Chest Pain 2D Dimensions IVC: 19.00 mm Aortic Valve AoV Peak Serge.: 1.32 m/s AO Peak Gr.: 6.95 mmHg LVOT Max P.88 mmHg LVOT Max V: 0.98 m/s Pulmonary Valve PV Peak Serge.: 0.75 m/s PV Peak Gr.: 2.24 mmHg Tricuspid Valve TR Peak Serge.: 2.24 m/s TR Peak Gr.: 20.08 mmHg PA Pressure: 25.00 mmHg Left Ventricle The left ventricle is normal size. There is normal left ventricular [facility] [address] [place] [address] 2 D/M-MODE ECHOCARDIOGRAM Name: MANOJ WAGONER Room #: 140-7 ADM IN M.R.#: [id number] Admission: 02/09/21 Attend Phys: Lam Sorenson, Discharge: Date of : 46 Report #: [id number] wall thickness. The left ventricular systolic function is normal. The left ventricular ejection fraction is within the normal range. LVEF is 55-60%. This study is not technically sufficient to allow evaluation of the LV diastolic function due to atrial fibrillation. Right Ventricle The right ventricle is normal size. The right ventricular systolic function is normal. Atria The left atrium size is normal. The right atrium size is normal. Aortic Valve The aortic valve is normal in structure. No aortic regurgitation is present. There is no aortic valvular stenosis. Mitral Valve The mitral valve is normal in structure. There is no mitral valve regurgitation noted. No evidence of mitral valve stenosis. Tricuspid Valve The tricuspid valve is normal in structure. There is trace tricuspid regurgitation. Estimated PAP 25 mmHg. There is no pulmonary hypertension. Pulmonic Valve The pulmonary valve is normal in structure. There is no pulmonic valvular regurgitation. Great Vessels The aortic root is normal in size. IVC is normal in size and collapses >50% with inspiration. Pericardium There is no pericardial effusion. <Conclusion> The left ventricle is normal size. There is normal left ventricular wall thickness. LVEF is 55-60%. The right ventricle is normal size. The left atrium size is normal. The aortic valve is normal in structure. The mitral valve is normal in structure. [facility] [address] [place] [address] 2 D/M-MODE ECHOCARDIOGRAM Name: MANOJ WAGONER Room #: 140-7 ADM IN M.R.#: [id number] Admission: 02/09/21 Attend Phys: Lam Sorenson, Discharge: Date of : 46 Report #: [id number] The tricuspid valve is normal in structure. There is trace tricuspid regurgitation. Estimated PAP 25 mmHg. There is no pulmonary hypertension. The pulmonary valve is normal in structure. The aortic root is normal in size. There is no pericardial effusion. <ELECTRONICALLY SIGNED> By: Michael Glass MD 02/09/21 1506 1506 1506 Michael Glass MD /INF
[2021-02-09 16:51] VITALS: BP 167/108
[2021-02-09 20:30] VITALS: BP 140/105
[2021-02-10 01:40] VITALS: BP 177/108
[2021-02-10 05:40] LABS: ABSOLUTE NEUTROPHILS 7.3 thou/uL (1.4-8.2); BASOPHILS 0.3 % (0.0-2.0); HEMATOCRIT 40.3 % (37.0-47.0); HEMOGLOBIN 13.1 gm/dL (12.0-15.0); LYMPHOCYTES 18.1 % (24.0-44.0); MCH 31.6 pg (26.0-34.0); MCHC 32.6 g/dL (28.0-37.0); MCV 97.1 fL (80.0-100.0); MONOCYTES 6.9 % (1.0-8.0); PLATELET COUNT 246 thou/uL (150-400); POLYS 74.7 % (36.0-66.0); RBC 4.15 mil/uL (4.20-5.00); RDW 15.3 % (10.5-14.5); WBC 9.7 thou/uL (4.0-11.0)
[2021-02-10 05:47] VITALS: BP 152/93
[2021-02-10 06:01] LABS: MAGNESIUM 1.6 mg/dL (1.8-2.4); POTASSIUM 3.5 mmol/L (3.5-5.1)
[2021-02-10] MEDS ORDERED: BENICAR40 MG PO (09:25)
[2021-02-10 09:47] VITALS: BP 152/82
--- NOTE | 2021-02-10 11:08 | EKG ---
[place] [address] [facility] [employer] [address] ELECTROCARDIOGRAM REPORT Name: MANOJ WAGONER Room #: 170-2 ADM IN M.R.#: [id number] Admission: 02/09/21 Attend Phys: Lam Sorenson MD Discharge: Date of : 46 Report #: [id number] [facility] ED Test Date: 2021-02-08 Test Time: 21:14:37 Pat Name: MANOJ WAGONER Department: Room: 170 Gender: F Alley Cleaner: : 1950 Requested By: Anny Hobson Order Number: [id number] MD: Chris Perkins Measurements Intervals Gaffney Rate: 84 P: -16 CA: 228 QRS: -89 QRSD: 85 T: -9 QT: 376 QTc: 445 Interpretive Statements Sinus rhythm Prolonged CA interval Inferior infarct, old Nonspecific T wave abnormality Borderline prolonged QT interval Compared to ECG 09/02/2020 10:22:06 No significant change was found Electronically Signed On 02-10-2021 11:08:16 TRUCK FARMER by Chris Perkins [email or web address] <ELECTRONICALLY SIGNED> By: Chris Perkins MD, [facility] 02/10/21 1108 13 13 Chris Perkins MD, [facility] /EPI
[2021-02-10 12:25] VITALS: BP 180/95
[2021-02-10] MEDS ORDERED: ULTRAM50 MG PO (13:05)
[2021-02-10] MEDS ORDERED: ADVIL200 M3 PO (13:11)
== END 2021-02-10 14:40 | disposition home or self-care (01) | DRG 305 ==
LOC: ER 20:55 → ADMC 02-09 06:34 → EROBS 02-10 08:32
PROVIDERS: Emergency Medicine; Nurse Practitioner; ADMIT Internal Medicine; ATTEND Internal Medicine
DX: I16.1 Hypertensive emergency (principal); R07.89 Other chest pain; E78.5 Hyperlipidemia, unspecified; I10 Essential (primary) hypertension; G89.29 Other chronic pain; E11.9 Type 2 diabetes mellitus without complications; Z86.718 Personal history of other venous thrombosis and embolism; Z95.828 Presence of other vascular implants and grafts; Z79.4 Long term (current) use of insulin; Z88.0 Allergy status to penicillin; Z88.2 Allergy status to sulfonamides; Z91.041 Radiographic dye allergy status; Z91.040 Latex allergy status; Z86.711 Personal history of pulmonary embolism; Z87.891 Personal history of nicotine dependence; Z79.891 Long term (current) use of opiate analgesic; Z79.899 Other long term (current) drug therapy; Z79.82 Long term (current) use of aspirin; Z20.822 Contact with and (suspected) exposure to COVID-19
CPT/HCPCS: 10040